=== PATIENT | female | born 1965 ===

== ENCOUNTER 2020-01-10 07:59 | Outpatient (REF) | payer OTHER, SELFPAY ==
[2020-01-10 09:45] LABS: Alanine Aminotransferase 18 U/L (0-31); Albumin Level 4.3 g/dL (3.5-5.0); Alkaline Phosphatase 82 U/L (39-117); Anion Gap 13 (12-20); Aspartate Amino Transferase 16 U/L (5-31); Bilirubin Total 0.6 mg/dL (0.0-1.0); Blood Urea Nitrogen 16 mg/dL (9-16); Calcium 8.4 mg/dL (8.4-10.2); Carbon Dioxide 34 mmol/L (22-29); Chloride 97 mmol/L (96-108); Cholesterol 168 mg/dL; Estimated Glomerular Filt Rate > 60; Glucose Random 103 mg/dL (60-115); HDL Cholesterol 45 mg/dL; LDL Cholesterol Calculated 99 mg/dl; Potassium 2.8 mmol/l (3.3-5.1); Sodium 141 mmol/L (135-145); Total Protein 7.1 g/dL (6.5-8.0); Triglycerides 124 mg/dL
== END 2020-01-10 08:00 | disposition home or self-care (01) ==
LOC: HO.LAB 07:59
PROVIDERS: Visit Provider Internal Medicine
DX: Z00.01 Encounter for general adult medical examination with abnormal findings (principal); E87.6 Hypokalemia; I10 Essential (primary) hypertension; J01.80 Other acute sinusitis
CPT/HCPCS: 80053; 80061

== ENCOUNTER 2020-02-19 08:51 | Outpatient (REF) | payer OTHER, SELFPAY ==
[2020-02-19 10:25] LABS: Alanine Aminotransferase 15 U/L (0-31); Albumin Level 4.4 g/dL (3.5-5.0); Alkaline Phosphatase 71 U/L (39-117); Anion Gap 14 (12-20); Aspartate Amino Transferase 15 U/L (5-31); Bilirubin Total 0.6 mg/dL (0.0-1.0); Blood Urea Nitrogen 21 mg/dL (9-16); Calcium 9.3 mg/dL (8.4-10.2); Carbon Dioxide 35 mmol/L (22-29); Chloride 97 mmol/L (96-108); Estimated Glomerular Filt Rate > 60; Glucose Random 94 mg/dL (60-115); Potassium 3.1 mmol/l (3.3-5.1); Sodium 143 mmol/L (135-145); Total Protein 7.4 g/dL (6.5-8.0)
== END 2020-02-19 08:52 | disposition home or self-care (01) ==
LOC: HO.LAB 08:51
PROVIDERS: Visit Provider Internal Medicine
DX: E87.3 Alkalosis (principal); E87.6 Hypokalemia; I10 Essential (primary) hypertension; R05 Cough
CPT/HCPCS: 80053

== ENCOUNTER 2020-02-19 09:28 | Outpatient (REF) | payer OTHER, SELFPAY | END 2020-02-19 09:29 | disposition home or self-care (01) | LOC: HO.LAB 09:28 | PROVIDERS: Visit Provider Internal Medicine | DX: Z20.828 Contact with and (suspected) exposure to other viral communicable diseases (principal) | CPT/HCPCS: C9803; U0003 ==

== ENCOUNTER 2020-03-28 08:17 | Outpatient (REF) | payer OTHER, SELFPAY ==
--- NOTE | 2020-03-28 08:34 | XR_ITS ---
EXAMINATION: XR CHEST CLINICAL INFORMATION: Bronchitis. Pneumonia. COMPARISON: Previous chest x-ray August 2013 TECHNIQUE: 2 views of the chest were obtained. FINDINGS: The cardiac and mediastinal contours are stable. The lungs are clear. There is no pleural effusion or pneumothorax. Bony structures are unremarkable. XR/XR chest 2V IMPRESSION: Unremarkable examination.
[2020-03-28 09:25] LABS: Alanine Aminotransferase 16 U/L (0-31); Albumin Level 4.2 g/dL (3.5-5.0); Alkaline Phosphatase 77 U/L (39-117); Anion Gap 11 (12-20); Aspartate Amino Transferase 14 U/L (5-31); Bilirubin Total 0.6 mg/dL (0.0-1.0); Blood Urea Nitrogen 13 mg/dL (9-16); Calcium 8.9 mg/dL (8.4-10.2); Carbon Dioxide 29 mmol/L (22-29); Chloride 105 mmol/L (96-108); Estimated Glomerular Filt Rate > 60; Glucose Fasting 94 mg/dL (60-99); Potassium 3.6 mmol/l (3.3-5.1); Sodium 141 mmol/L (135-145); Total Protein 6.9 g/dL (6.5-8.0)
== END 2020-03-28 08:18 | disposition home or self-care (01) ==
LOC: HO.LAB 08:17
PROVIDERS: PCP Internal Medicine; Visit Provider Internal Medicine
DX: E87.6 Hypokalemia (principal); I10 Essential (primary) hypertension; J20.9 Acute bronchitis, unspecified; R05 Cough; J18.9 Pneumonia, unspecified organism
CPT/HCPCS: 36415; 71046; 80053

== ENCOUNTER 2020-03-31 11:29 | Outpatient (REF) | payer OTHER, SELFPAY | END 2020-03-31 11:30 | disposition home or self-care (01) | LOC: HO.LAB 11:29 | PROVIDERS: Visit Provider Internal Medicine | DX: Z20.822 Contact with and (suspected) exposure to COVID-19 (principal) | CPT/HCPCS: 36415; C9803; U0003 ==

== ENCOUNTER → 2020-05-07 10:20 | Outpatient (BNVA) | payer OTHER, SELFPAY | PROVIDERS: Visit Provider Student in an Organized Health Care Education/Training Program | DX: M25.532 Pain in left wrist (principal); M17.12 Unilateral primary osteoarthritis, left knee; Z79.899 Other long term (current) drug therapy | CPT/HCPCS: 99212 ==

== ENCOUNTER 2020-05-12 10:36 | Outpatient (REF) | payer OTHER, SELFPAY ==
--- NOTE | ~2020-05-12 | XR_ITS ---
EXAMINATION: XR WRIST, LEFT CLINICAL INFORMATION: Pain left wrist. COMPARISON: None TECHNIQUE: PA, lateral, and oblique views of the left wrist. FINDINGS: The bones and soft tissues are normal. No fracture. Alignment is anatomic with normal joint spaces. No erosions or abnormal soft tissue calcifications. XR/XR wrist LT 2V IMPRESSION: Unremarkable left wrist exam.
--- NOTE | ~2020-05-12 | MM_ITS ---
EXAMINATION: MM SCREENING DIGITAL BREAST TOMOSYNTHESIS, BILATERAL CLINICAL INFORMATION: Screening. Asymptomatic. The lifetime risk of breast cancer based on the Tyrer-Cuzick Model is 5%. COMPARISON: Mammography: 02/27/2019, 01/10/2018, 11/23/2016 TECHNIQUE: Digital breast tomosynthesis is performed in both the craniocaudal and mediolateral oblique views along with computer-aided detection (CAD). Synthesized 2D images are generated from the tomosynthesis. Additional left MLO view is provided. FINDINGS: There are scattered areas of fibroglandular density (ACR BI-RADS breast composition Category b). There are no significant masses, abnormal calcifications, or other abnormalities. The skin contours are smooth. No significant changes from prior exams. MM/MM tomosynthesis screening BI IMPRESSION: No mammographic evidence of malignancy. ASSESSMENT: BI-RADS 1: Negative RECOMMENDATION: Routine annual mammography screening. This patient's information was entered into a reminder system with a target due date for their next mammogram.
== END 2020-05-12 10:37 | disposition home or self-care (01) ==
LOC: HO.MAMMO 10:36
PROVIDERS: Absent Provider Student in an Organized Health Care Education/Training Program; PCP Internal Medicine; Visit Provider Internal Medicine
DX: Z12.31 Encounter for screening mammogram for malignant neoplasm of breast (principal); M25.532 Pain in left wrist
CPT/HCPCS: 73100; 77063; 77067

== ENCOUNTER 2020-05-26 13:23 | Outpatient (REF) | payer OTHER, SELFPAY | END 2020-05-26 13:24 | disposition home or self-care (01) | LOC: HO.LAB 13:23 | PROVIDERS: Visit Provider Internal Medicine | DX: Z20.822 Contact with and (suspected) exposure to COVID-19 (principal) | CPT/HCPCS: 36415; C9803; U0003; U0005 ==

== ENCOUNTER 2020-06-06 13:02 | Outpatient (REF) | payer OTHER, SELFPAY ==
[2020-06-07 07:45] LABS: SARS COV2 PCR INHOUSE POSITIVE (Negative)
== END 2020-06-06 13:03 | disposition home or self-care (01) ==
LOC: HO.LAB 13:02
PROVIDERS: Visit Provider Internal Medicine
DX: Z20.822 Contact with and (suspected) exposure to COVID-19 (principal)
CPT/HCPCS: C9803; U0003

== ENCOUNTER 2020-06-17 10:40 | Outpatient (REF) | payer OTHER, SELFPAY ==
[2020-06-17 12:15] LABS: COVID-19 Test Negative (Negative)
== END 2020-06-17 10:41 | disposition home or self-care (01) ==
LOC: HO.LAB 10:40
PROVIDERS: Visit Provider Internal Medicine
DX: Z20.822 Contact with and (suspected) exposure to COVID-19 (principal)
CPT/HCPCS: 36415; 87635; C9803

== ENCOUNTER → 2020-11-12 13:19 | Outpatient (BNVA) | payer OTHER, SELFPAY | PROVIDERS: PCP Internal Medicine | DX: N28.1 Cyst of kidney, acquired (principal) | CPT/HCPCS: 99202 ==

== ENCOUNTER 2020-12-22 14:04 | Outpatient (REF) | payer OTHER, SELFPAY ==
[2020-12-22 14:26] LABS: MANUAL DIFF FLAG NO
[2020-12-22 14:31] LABS: Basophils Percent Auto 0.3 % (0-2); Eosinophils Absolute Auto 0.2 X10*3/uL (0.0-0.4); Eosinophils Percent Auto 2.8 % (0-4); Hemoglobin 13.3 g/dl (12.0-16.0); Imm Gran Abs Auto 0.01 X10*3/uL (0.00-0.03); Imm Gran Pct Auto 0.1 % (0.0-0.4); Lymphocytes Absolute Auto 2.6 X10*3/uL (1.2-4.9); Lymphocytes Percent Auto 37.5 % (20-40); Mean Corpuscular HGB Conc 33.3 g/dl (31.0-35.0); Mean Corpuscular Hemoglobin 31.1 pg (27.0-33.0); Mean Corpuscular Volume 93.5 fL (80-98); Mean Platelet Volume 10.2 fL (9.4-12.3); Monocytes Absolute Auto 0.5 X10*3/uL (0.1-1.2); Monocytes Percent Auto 6.9 % (2-11); Neutrophils Absolute Auto 3.6 X10*3/uL (2.0-8.3); Neutrophils Percent Auto 52.4 % (45-73); Platelet Count 248 X10*3/uL (160-400); Red Blood Count 4.28 X10*6/uL (4.20-5.50); Red Cell Distribution Width 12.3 % (11.0-16.0); White Blood Count 6.9 X10*3/uL (4.8-10.8)
[2020-12-22 14:47] LABS: Alanine Aminotransferase 15 U/L (0-31); Albumin Level 4.4 g/dL (3.5-5.0); Alkaline Phosphatase 108 U/L (39-117); Anion Gap 14 (12-20); Aspartate Amino Transferase 15 U/L (5-31); Bilirubin Total 0.4 mg/dL (0.0-1.0); Blood Urea Nitrogen 12 mg/dL (9-16); Calcium 8.8 mg/dL (8.4-10.2); Carbon Dioxide 32 mmol/L (22-29); Chloride 103 mmol/L (96-108); Cholesterol 168 mg/dL; Estimated Glomerular Filt Rate > 60; Glucose Random 71 mg/dL (60-115); HDL Cholesterol 44 mg/dL; LDL Cholesterol Calculated 99 mg/dl; Potassium 3.7 mmol/L (3.3-5.1); Sodium 145 mmol/L (135-145); Total Protein 7.4 g/dL (6.5-8.0); Triglycerides 128 mg/dL
== END 2020-12-22 14:05 | disposition home or self-care (01) ==
LOC: HO.LAB 14:04
PROVIDERS: Visit Provider Internal Medicine
DX: E78.00 Pure hypercholesterolemia, unspecified (principal); I10 Essential (primary) hypertension; J45.902 Unspecified asthma with status asthmaticus; R35.0 Frequency of micturition
CPT/HCPCS: 36415; 80053; 80061; 85025

== ENCOUNTER → 2020-12-29 11:03 | Outpatient (BNVA) | payer OTHER, SELFPAY | PROVIDERS: PCP Internal Medicine; Visit Provider Nurse Practitioner Family | DX: M25.512 Pain in left shoulder (principal); M25.521 Pain in right elbow; M17.12 Unilateral primary osteoarthritis, left knee; Z79.899 Other long term (current) drug therapy | CPT/HCPCS: 99212 ==

== ENCOUNTER 2020-12-31 11:02 | Outpatient (REF) | payer OTHER, SELFPAY ==
--- NOTE | ~2020-12-31 | XR_ITS ---
EXAMINATION: XR SHOULDER, LEFT CLINICAL INFORMATION: Pain in left shoulder COMPARISON: None TECHNIQUE: Four views of the left shoulder. FINDINGS: No fracture or dislocation. The glenohumeral joint is well aligned. The joint space is maintained. The acromioclavicular joint is intact. The visualized lung is clear. The visualized ribs are intact. XR/XR shoulder LT min 2V IMPRESSION: Normal left shoulder.
--- NOTE | ~2020-12-31 | XR_ITS ---
EXAMINATION: XR ELBOW, RIGHT CLINICAL INFORMATION: Pain in right elbow COMPARISON: None TECHNIQUE: AP, lateral, and oblique views of the right elbow. FINDINGS: No fracture or dislocation. Alignment is maintained. Joint spaces are maintained. Enthesophyte formation of the olecranon. No joint effusion. The soft tissues are unremarkable. XR/XR elbow RT 2V IMPRESSION: Olecranon enthesophyte. Otherwise unremarkable appearance of the elbow.
== END 2020-12-31 11:03 | disposition home or self-care (01) ==
LOC: HO.XRAY 11:02
PROVIDERS: PCP Internal Medicine; Visit Provider Nurse Practitioner Family
DX: M25.512 Pain in left shoulder (principal); M25.521 Pain in right elbow
CPT/HCPCS: 73030; 73070

== ENCOUNTER 2021-02-20 08:25 | Outpatient (REF) | payer OTHER, SELFPAY ==
[2021-02-20 10:16] LABS: COVID-19 Test Negative (Negative)
== END 2021-02-20 08:26 | disposition home or self-care (01) ==
LOC: HO.LAB 08:25
PROVIDERS: Visit Provider Internal Medicine
DX: Z20.822 Contact with and (suspected) exposure to COVID-19 (principal)
CPT/HCPCS: 36415; 87635; C9803

== ENCOUNTER 2021-03-12 11:24 | Outpatient (REF) | payer OTHER, SELFPAY ==
[2021-03-12 12:22] LABS: COVID-19 Test Negative (Negative); IDNOW Serial# 16C4AD1C
== END 2021-03-12 11:25 | disposition home or self-care (01) ==
LOC: HO.LAB 11:24
PROVIDERS: Visit Provider Internal Medicine
DX: Z20.822 Contact with and (suspected) exposure to COVID-19 (principal)
CPT/HCPCS: 87635; C9803

== ENCOUNTER 2021-04-01 10:16 | Outpatient (REF) | payer OTHER, SELFPAY ==
--- NOTE | ~2021-04-01 | US_ITS ---
EXAMINATION: US RETROPERITONEAL LIMITED (RENAL ONLY) CLINICAL INFORMATION: Cyst of kidney, acquired. COMPARISON: Renal ultrasound 04/05/2018 and 11/23/2017. CT abdomen and pelvis 08/11/2014. TECHNIQUE: Real-time imaging of the kidneys. FINDINGS: RIGHT KIDNEY: 10.0 x 4.9 x 5.1 cm (SAG x AP x TRV). The kidney is normal in size, contour, and echogenicity. Renal cortical thickness is normal. No focal parenchymal lesions or hydronephrosis. There are echogenic stone midpole measuring 0.3 and 0.2 cm. There is mild pelvic fullness. LEFT KIDNEY: 11.8 x 4.7 x 5.0 cm (SAG x AP x TRV). The kidney is normal in size, contour, and echogenicity. Renal cortical thickness is normal. No focal parenchymal lesions or hydronephrosis. There is an echogenic stone in midpole measuring 0.2 cm. No cyst is visualized at this time. There is mild pelvic fullness. US/US renal BI IMPRESSION: Bilateral non obstructive echogenic renal calculi without caliectasis or hydronephrosis. Previously seen complex cyst left kidney upper pole is not seen at this time. There is mild bilateral pelvic fullness.
== END 2021-04-01 10:17 | disposition home or self-care (01) ==
LOC: HO.US 10:16
DX: N28.1 Cyst of kidney, acquired (principal)
CPT/HCPCS: 76775

== ENCOUNTER → 2021-05-12 13:17 | Outpatient (BNVA) | payer OTHER, SELFPAY | PROVIDERS: PCP Internal Medicine | DX: N28.1 Cyst of kidney, acquired (principal); N20.0 Calculus of kidney | CPT/HCPCS: 99212 ==

== ENCOUNTER 2021-06-02 11:17 | Outpatient (REF) | payer OTHER, SELFPAY ==
--- NOTE | ~2021-06-02 | MM_ITS ---
EXAMINATION: MM SCREENING DIGITAL BREAST TOMOSYNTHESIS, BILATERAL CLINICAL INFORMATION: Screening. Asymptomatic. The lifetime risk of breast cancer based on the Tyrer-Cuzick Model is 5%. COMPARISON: Mammography: 05/12/2020, 02/27/2019, 01/10/2018, 11/23/2016 TECHNIQUE: Digital breast tomosynthesis is performed in both the craniocaudal and mediolateral oblique views along with computer-aided detection (CAD). Synthesized 2D images are generated from the tomosynthesis. Additional left MLO view is provided. FINDINGS: There are scattered areas of fibroglandular density (ACR BI-RADS breast composition Category b). There are no significant masses, abnormal calcifications, or other abnormalities. Parenchymal pattern is similar to prior studies. Axillary nodes are stable. Skin contours are smooth. No significant changes. MM/MM tomosynthesis screening BI IMPRESSION: No mammographic evidence of malignancy. ASSESSMENT: BI-RADS 2: Benign RECOMMENDATION: Routine annual mammography screening. This patient's information was entered into a reminder system with a target due date for their next mammogram.
== END 2021-06-02 11:18 | disposition home or self-care (01) ==
LOC: HO.MAMMO 11:17
PROVIDERS: PCP Internal Medicine; Visit Provider Internal Medicine
DX: Z12.31 Encounter for screening mammogram for malignant neoplasm of breast (principal)
CPT/HCPCS: 77063; 77067

== ENCOUNTER 2021-06-22 10:08 | Outpatient (REF) | payer OTHER, SELFPAY ==
[2021-06-22 11:23] LABS: Alanine Aminotransferase 24 U/L (0-31); Albumin Level 4.3 g/dL (3.5-5.0); Alkaline Phosphatase 105 U/L (39-117); Anion Gap 12 (12-20); Aspartate Amino Transferase 19 U/L (5-31); Bilirubin Total 0.6 mg/dL (0.0-1.0); Blood Urea Nitrogen 14 mg/dL (9-16); Calcium 9.4 mg/dL (8.4-10.2); Carbon Dioxide 31 mmol/L (22-29); Chloride 103 mmol/L (96-108); Estimated Glomerular Filt Rate > 60; Glucose Random 101 mg/dL (60-115); Potassium 3.6 mmol/L (3.3-5.1); Sodium 142 mmol/L (135-145); Total Protein 7.3 g/dL (6.5-8.0)
== END 2021-06-22 10:09 | disposition home or self-care (01) ==
LOC: HO.LAB 10:08
PROVIDERS: PCP Internal Medicine; Visit Provider Internal Medicine
DX: Z00.00 Encounter for general adult medical examination without abnormal findings (principal); E78.00 Pure hypercholesterolemia, unspecified; I10 Essential (primary) hypertension
CPT/HCPCS: 36415; 80053

== ENCOUNTER → 2021-06-29 10:54 | Outpatient (BNVA) | payer OTHER, SELFPAY | PROVIDERS: PCP Internal Medicine; Visit Provider Nurse Practitioner Family | DX: M17.12 Unilateral primary osteoarthritis, left knee (principal); M25.512 Pain in left shoulder; M25.521 Pain in right elbow | CPT/HCPCS: 99212 ==

== ENCOUNTER 2021-09-21 10:07 | Outpatient (REF) | payer OTHER, SELFPAY ==
[2021-09-21 10:15] LABS: MANUAL DIFF FLAG NO
[2021-09-21 10:44] LABS: Basophils Percent Auto 0.2 % (0-2); Eosinophils Absolute Auto 0.1 X10*3/uL (0.0-0.4); Eosinophils Percent Auto 1.4 % (0-4); Hematocrit 39.7 % (37.0-47.0); Hemoglobin 13.6 g/dl (12.0-16.0); Imm Gran Abs Auto 0.03 X10*3/uL (0.00-0.03); Imm Gran Pct Auto 0.5 % (0.0-0.4); Lymphocytes Absolute Auto 2.3 X10*3/uL (1.2-4.9); Lymphocytes Percent Auto 36.5 % (20-40); Mean Corpuscular HGB Conc 34.3 g/dl (31.0-35.0); Mean Corpuscular Hemoglobin 31.6 pg (27.0-33.0); Mean Corpuscular Volume 92.3 fL (80.0-98.0); Monocytes Absolute Auto 0.4 X10*3/uL (0.1-1.2); Monocytes Percent Auto 6.7 % (2-11); Neutrophils Absolute Auto 3.5 x10*3/uL (2.0-8.3); Neutrophils Percent Auto 54.7 % (45-73); Platelet Count 205 X10*3/uL (160-400); Red Cell Distribution Width 12.7 % (11.0-16.0); White Blood Count 6.3 X10*3/uL (4.8-10.8)
[2021-09-21 12:09] LABS: TSH reflex Free T4 1.58 uIU/mL (0.32-4.0)
== END 2021-09-21 10:08 | disposition home or self-care (01) ==
LOC: HO.LAB 10:07
PROVIDERS: PCP Internal Medicine; Visit Provider Internal Medicine
DX: I10 Essential (primary) hypertension (principal); I47.1 Supraventricular tachycardia; J30.89 Other allergic rhinitis
CPT/HCPCS: 36415; 84443; 85025

== ENCOUNTER 2021-12-22 08:36 | Outpatient (REF) | payer OTHER, SELFPAY ==
[2021-12-22 09:57] LABS: Alanine Aminotransferase 13 U/L (0-31); Albumin Level 4.1 g/dL (3.5-5.0); Alkaline Phosphatase 96 U/L (39-117); Anion Gap 15 (12-20); Aspartate Amino Transferase 14 U/L (5-31); Bilirubin Total 0.6 mg/dL (0.0-1.0); Blood Urea Nitrogen 13 mg/dL (9-16); Calcium 8.8 mg/dL (8.4-10.2); Carbon Dioxide 29 mmol/L (22-29); Chloride 104 mmol/L (96-108); Cholesterol 166 mg/dL; Estimated Glomerular Filt Rate > 60; Glucose Random 98 mg/dL (60-115); HDL Cholesterol 44 mg/dL; LDL Cholesterol Calculated 99 mg/dl; Potassium 3.8 mmol/L (3.3-5.1); Sodium 144 mmol/L (135-145); Triglycerides 118 mg/dL
== END 2021-12-22 08:37 | disposition home or self-care (01) ==
LOC: HO.LAB 08:36
PROVIDERS: PCP Internal Medicine; Visit Provider Internal Medicine
DX: E78.00 Pure hypercholesterolemia, unspecified (principal); I10 Essential (primary) hypertension; J45.909 Unspecified asthma, uncomplicated; Q61.8 Other cystic kidney diseases
CPT/HCPCS: 36415; 80053; 80061

== ENCOUNTER → 2022-04-05 10:10 | Outpatient (BNVA) | payer OTHER, SELFPAY | PROVIDERS: PCP Internal Medicine; Visit Provider Nurse Practitioner Family | DX: M17.12 Unilateral primary osteoarthritis, left knee (principal); M25.561 Pain in right knee | CPT/HCPCS: 99212 ==

== ENCOUNTER 2022-04-14 10:23 | Outpatient (REF) | payer OTHER, SELFPAY | END 2022-04-14 10:24 | disposition home or self-care (01) | LOC: HO.LAB 10:23 | PROVIDERS: Absent Provider Internal Medicine; PCP Internal Medicine; Visit Provider Nurse Practitioner Family | DX: N39.0 Urinary tract infection, site not specified (principal) | CPT/HCPCS: 87086 ==

== ENCOUNTER 2022-04-19 11:08 | Outpatient (REF) | payer OTHER, SELFPAY ==
--- NOTE | ~2022-04-19 | XR_ITS ---
EXAMINATION: XR KNEE, RIGHT CLINICAL INFORMATION: Pain in the right knee COMPARISON: None TECHNIQUE: Four views of the right knee. XR/XR knee RT 3V FINDINGS AND IMPRESSION: Bones have normal alignment and joint spaces are normal. No joint effusion. No arthritic deformity. There is an enthesophyte of the anterior tibial tubercle at site of patellar tendon attachment. No specific source of pain is identified.
== END 2022-04-19 11:09 | disposition home or self-care (01) ==
LOC: HO.XRAY 11:08
PROVIDERS: PCP Internal Medicine; Visit Provider Nurse Practitioner Family
DX: M25.561 Pain in right knee (principal)
CPT/HCPCS: 73562

== ENCOUNTER 2022-05-03 09:06 | Outpatient (REF) | payer OTHER, SELFPAY ==
--- NOTE | ~2022-05-03 | US_ITS ---
EXAMINATION: US RETROPERITONEAL LIMITED (RENAL ONLY) CLINICAL INFORMATION: Calculus of kidney. COMPARISON: Ultrasound retroperitoneal limited (renal only) 04/01/2021. Renal artery Doppler ultrasound 04/05/2018. CT abdomen and pelvis without contrast 08/11/2014. TECHNIQUE: Real-time imaging of the kidneys. FINDINGS: RIGHT KIDNEY: 10.1 x 4.6 x 5.7 cm (SAG x AP x TRV). The kidney is normal in size, contour, and echogenicity. Renal cortical thickness is normal. No focal parenchymal lesions or hydronephrosis. There are echogenic stones in the midpole measuring 0.2 x 0.3 cm and 0.3 x 0.3 cm. LEFT KIDNEY: 11.2 x 5.0 x 4.8 cm (SAG x AP x TRV). The kidney is normal in size, contour, and echogenicity. Renal cortical thickness is normal. No focal parenchymal lesions or hydronephrosis. There is an echogenic foci in the lower pole measuring 0.3 x 0.3 cm. US/US renal BI IMPRESSION: Bilateral nonobstructive echogenic renal calculi. No caliectasis or hydronephrosis. No change from previous ultrasound exam 04/01/2021.
== END 2022-05-03 09:07 | disposition home or self-care (01) ==
LOC: HO.US 09:06
PROVIDERS: PCP Internal Medicine
DX: N20.0 Calculus of kidney (principal); N28.1 Cyst of kidney, acquired
CPT/HCPCS: 76775

== ENCOUNTER → 2022-05-18 13:36 | Outpatient (BNVA) | payer OTHER, SELFPAY | PROVIDERS: PCP Internal Medicine; Visit Provider Nurse Practitioner Family | DX: N20.0 Calculus of kidney (principal) | CPT/HCPCS: Q3014 ==

== ENCOUNTER 2022-06-08 09:52 | Outpatient (REF) | payer OTHER, SELFPAY ==
--- NOTE | ~2022-06-08 | MM_ITS ---
EXAMINATION: MM SCREENING DIGITAL BREAST TOMOSYNTHESIS, BILATERAL CLINICAL INFORMATION: Screening. Asymptomatic. The lifetime risk of breast cancer based on the Tyrer-Cuzick Model is 5%. COMPARISON: Mammography: 06/02/2021, 05/12/2020, 02/27/2019 TECHNIQUE: Digital breast tomosynthesis is performed in both the craniocaudal and mediolateral oblique views along with computer-aided detection (CAD). Synthesized 2D images are generated from the tomosynthesis. FINDINGS: There are scattered areas of fibroglandular density (ACR BI-RADS breast composition Category b). There are no significant masses, abnormal calcifications, or other abnormalities. Parenchymal pattern is similar to prior studies. There is no developing density or architectural abnormality. The axilla and skin contours are unremarkable. No significant changes. MM/MM tomosynthesis screening BI IMPRESSION: No mammographic evidence of malignancy. ASSESSMENT: BI-RADS 1: Negative RECOMMENDATION: Routine annual mammography screening. This patient's information was entered into a reminder system with a target due date for their next mammogram.
== END 2022-06-08 09:53 | disposition home or self-care (01) ==
LOC: HO.MAMMO 09:52
PROVIDERS: PCP Internal Medicine; Visit Provider Internal Medicine
DX: Z12.31 Encounter for screening mammogram for malignant neoplasm of breast (principal)
CPT/HCPCS: 77063; 77067

== ENCOUNTER 2022-06-14 10:43 | Outpatient (REF) | payer OTHER, SELFPAY ==
[2022-06-14 12:16] LABS: Alanine Aminotransferase 23 U/L (0-31); Albumin Level 4.3 g/dL (3.5-5.0); Alkaline Phosphatase 92 U/L (39-117); Anion Gap 13 (12-20); Aspartate Amino Transferase 20 U/L (5-31); Bilirubin Total 0.5 mg/dL (0.0-1.0); Blood Urea Nitrogen 15 mg/dL (9-16); Calcium 9.3 mg/dL (8.4-10.2); Carbon Dioxide 31 mmol/L (22-29); Chloride 105 mmol/L (96-108); Estimated Glomerular Filt Rate > 60; Glucose Random 109 mg/dL (60-115); Potassium 3.6 mmol/L (3.3-5.1); Sodium 145 mmol/L (135-145); Total Protein 7.1 g/dL (6.5-8.0)
== END 2022-06-14 10:44 | disposition home or self-care (01) ==
LOC: HO.LAB 10:43
PROVIDERS: PCP Internal Medicine; Visit Provider Internal Medicine
DX: I10 Essential (primary) hypertension (principal); R10.30 Lower abdominal pain, unspecified
CPT/HCPCS: 36415; 80053

== ENCOUNTER 2022-06-16 10:41 | Outpatient (REF) | payer OTHER, SELFPAY ==
--- NOTE | ~2022-06-16 | CT_ITS ---
EXAMINATION: CT ABDOMEN AND PELVIS WITH CONTRAST CLINICAL INFORMATION: Lower abdominal pain COMPARISON: Previous CT of the abdomen and pelvis August 2014 and renal ultrasound most recent April 2022 TECHNIQUE: Multidetector volumetric images were obtained from the superior aspect of the liver through the pubic symphysis following administration 85 mL of Omnipaque 350 intravenous contrast. Sagittal and coronal reformatted images were obtained on the technologist's workstation. Oral contrast: Yes This CT examination was performed using dose optimization techniques as appropriate, variously including the following: *Automated exposure control *Adjustment of mA and/or kV according to patient size (this includes techniques or standardized protocols for targeted exams where dose is matched to indication/reason for exam; i.e. extremities or head) *Use of iterative reconstruction technique DLP: 380 mGy-cm FINDINGS: LUNG BASES: The visualized lung bases are unremarkable. LIVER, GALLBLADDER, AND BILIARY TREE: The liver is low in attenuation suggestive of fatty infiltration. No focal hepatic lesion or biliary ductal dilatation is present. The gallbladder is unremarkable with no evidence of radiopaque gallstones, gallbladder wall thickening, or obvious pericholecystic inflammatory changes. PANCREAS: Unremarkable. SPLEEN: Unremarkable. ADRENAL GLANDS: Unremarkable. KIDNEYS AND URETERS: The kidneys are normal in size, shape, and attenuation. No hydronephrosis, hydroureter, or calculi seen. No perinephric stranding. Small cyst in the upper pole of the left kidney. No imaging follow-up recommended. BLADDER: Unremarkable. GASTROINTESTINAL TRACT: The small and large bowel are unremarkable. The appendix is unremarkable. ABDOMINAL WALL: No significant hernia is appreciated. LYMPH NODES: Normal. VASCULAR: Unremarkable. PELVIC VISCERA: Unremarkable. OSSEOUS STRUCTURES: Unremarkable. CT/CT abdomen pelvis w IV con IMPRESSION: No acute findings. Fatty liver. Fleischner guidelines were followed.
[2022-06-16] MEDS: Barium Sulfate Oral (Berry) 450 ML ORAL.SUSP 900 ML PO (14:22)
[2022-06-16] MEDS: iohexoL 350 MG/ML 100 ML INFUS..BTL 85 ML IV (14:22)
== END 2022-06-16 10:42 | disposition home or self-care (01) ==
LOC: HO.CT 10:41
PROVIDERS: PCP Internal Medicine; Visit Provider Internal Medicine
DX: R10.32 Left lower quadrant pain (principal)
CPT/HCPCS: 74177; Q9967

== ENCOUNTER → 2022-07-02 09:52 | Outpatient (BNVA) | payer OTHER, SELFPAY | PROVIDERS: PCP Internal Medicine; Visit Provider Nurse Practitioner Family | DX: M25.561 Pain in right knee (principal); M17.12 Unilateral primary osteoarthritis, left knee | CPT/HCPCS: 99212 ==

== ENCOUNTER → 2022-07-14 11:10 | Outpatient (BNVA) | payer OTHER, SELFPAY | PROVIDERS: PCP Internal Medicine; Referring Provider Internal Medicine; Visit Provider Surgery | DX: K64.8 Other hemorrhoids (principal) | CPT/HCPCS: 46600; 99202 ==

== ENCOUNTER 2022-07-19 10:57 | Outpatient (REF) | payer OTHER, SELFPAY ==
[2022-07-20 09:08] LABS: Lyme Abs Screen <0.90 index
== END 2022-07-19 10:58 | disposition home or self-care (01) ==
LOC: HO.LAB 10:57
PROVIDERS: PCP Internal Medicine; Visit Provider Nurse Practitioner Family
DX: M25.461 Effusion, right knee (principal); R10.2 Pelvic and perineal pain
CPT/HCPCS: 36415; 86617; 86618; 87086

== ENCOUNTER 2022-07-20 14:24 | Outpatient (REF) | payer OTHER, SELFPAY ==
[2022-07-21 09:10] LABS: CT PCR NOT DETECTED (Not Detect.); NG PCR NOT DETECTED (Not Detect.)
== END 2022-07-20 14:25 | disposition home or self-care (01) ==
LOC: HO.LNP 14:24
PROVIDERS: PCP Internal Medicine; Visit Provider Obstetrics & Gynecology
DX: R10.2 Pelvic and perineal pain (principal); R31.29 Other microscopic hematuria
CPT/HCPCS: 0353U; 87086; 99202

== ENCOUNTER 2022-07-23 13:56 | Outpatient (REF) | payer OTHER, SELFPAY ==
--- NOTE | ~2022-07-23 | US_ITS ---
EXAMINATION: US PELVIS COMPLETE CLINICAL INFORMATION: Pelvic pain; postmenopausal patient. COMPARISON: Pelvic ultrasound dated 03/03/2011. TECHNIQUE: Transabdominal and transvaginal imaging were performed. FINDINGS: The uterus is of normal size and echogenicity measuring 9.3 x 2.3 x 3.7 cm. A regular homogeneous endometrium is identified measuring 0.7 cm. FIBROIDS: There is 1 fibroid seen. 1. Location: Anterior body, myometrial. Size: 0.9 x 0.4 x 0.9 cm. Fibroid characteristics: Hyperechoic. Both ovaries are nonvisualized. There is no pelvic free fluid. No adnexal masses seen. US/US pelvic and transvaginal IMPRESSION: 1. There is abnormal postmenopausal endometrial stripe thickening to 7 mm. Gynecology evaluation and management are recommended, with consideration for tissue sampling. 2. A small uterine fibroid is noted. 3. The ovaries are nonvisualized.
== END 2022-07-23 13:57 | disposition home or self-care (01) ==
LOC: HO.US 13:56
PROVIDERS: PCP Internal Medicine; Visit Provider Obstetrics & Gynecology
DX: R10.2 Pelvic and perineal pain (principal)
CPT/HCPCS: 76830; 76856

== ENCOUNTER → 2022-08-12 10:29 | Outpatient (BNVA) | payer OTHER, SELFPAY | PROVIDERS: PCP Internal Medicine; Visit Provider Obstetrics & Gynecology | DX: R10.2 Pelvic and perineal pain (principal); R31.29 Other microscopic hematuria; D25.9 Leiomyoma of uterus, unspecified | CPT/HCPCS: 99212 ==

== ENCOUNTER 2022-09-27 08:37 | Outpatient (REF) | payer OTHER, SELFPAY ==
--- NOTE | ~2022-09-27 | US_ITS ---
EXAMINATION: US RETROPERITONEAL LIMITED (RENAL ONLY) CLINICAL INFORMATION: Hypertension. COMPARISON: Previous CT of the abdomen and pelvis 06/2022 and renal ultrasound, most recent 04/2022. TECHNIQUE: Doppler color and grayscale evaluation of the kidneys was performed. Doppler color and grayscale evaluation of the renal arteries including waveform spectral analysis was performed. FINDINGS: RIGHT KIDNEY: 10.6 x 4.7 x 5.2 cm (SAG x AP x TRV). The kidney is normal in size, contour, and echogenicity. Renal cortical thickness is normal. No calculi or focal parenchymal lesions. No hydronephrosis. LEFT KIDNEY: 10.9 x 5.7 x 4.7 cm (SAG x AP x TRV). The kidney is normal in size, contour, and echogenicity. Renal cortical thickness is normal. Small echogenic focus in the lower pole measuring 2 mm questionable for a small stone. No focal parenchymal lesions. No hydronephrosis. Aortic peak systolic velocity is 91 cm/s. The right renal artery is patent. Right renal artery peak systolic velocities measure 84, 179 and 34 cm/s with borderline elevation of the right mid renal artery. Right renal artery to aorta ratio is normal measuring 1.8. Resistive indices in the segmental renal arteries in the right kidney are normal measuring 0.7. The right renal vein is patent. Left renal artery peak systolic velocities measure 87, 168 and 133 cm/s proximally, in the midportion and distally. Left renal artery to aorta ratio is normal measuring 1.7. Resistive indices of the segmental renal arteries in the left kidney are normal measuring 0.7 cm. The left renal vein is patent. US/US renal BI IMPRESSION: Morphologically normal-appearing kidneys. Question small stone in the lower pole of the left kidney. Borderline elevated peak systolic velocity in the right mid renal artery. Renal Doppler exam is otherwise unremarkable.
--- NOTE | ~2022-09-27 | US_ITS ---
EXAMINATION: US RETROPERITONEAL LIMITED (RENAL ONLY) CLINICAL INFORMATION: Hypertension. COMPARISON: Previous CT of the abdomen and pelvis 06/2022 and renal ultrasound, most recent 04/2022. TECHNIQUE: Doppler color and grayscale evaluation of the kidneys was performed. Doppler color and grayscale evaluation of the renal arteries including waveform spectral analysis was performed. FINDINGS: RIGHT KIDNEY: 10.6 x 4.7 x 5.2 cm (SAG x AP x TRV). The kidney is normal in size, contour, and echogenicity. Renal cortical thickness is normal. No calculi or focal parenchymal lesions. No hydronephrosis. LEFT KIDNEY: 10.9 x 5.7 x 4.7 cm (SAG x AP x TRV). The kidney is normal in size, contour, and echogenicity. Renal cortical thickness is normal. Small echogenic focus in the lower pole measuring 2 mm questionable for a small stone. No focal parenchymal lesions. No hydronephrosis. Aortic peak systolic velocity is 91 cm/s. The right renal artery is patent. Right renal artery peak systolic velocities measure 84, 179 and 34 cm/s with borderline elevation of the right mid renal artery. Right renal artery to aorta ratio is normal measuring 1.8. Resistive indices in the segmental renal arteries in the right kidney are normal measuring 0.7. The right renal vein is patent. Left renal artery peak systolic velocities measure 87, 168 and 133 cm/s proximally, in the midportion and distally. Left renal artery to aorta ratio is normal measuring 1.7. Resistive indices of the segmental renal arteries in the left kidney are normal measuring 0.7 cm. The left renal vein is patent. US/US renal doppler IMPRESSION: Morphologically normal-appearing kidneys. Question small stone in the lower pole of the left kidney. Borderline elevated peak systolic velocity in the right mid renal artery. Renal Doppler exam is otherwise unremarkable.
== END 2022-09-27 08:38 | disposition home or self-care (01) ==
LOC: HO.US 08:37
PROVIDERS: PCP Internal Medicine; Visit Provider Internal Medicine Nephrology
DX: N20.0 Calculus of kidney (principal); I10 Essential (primary) hypertension; R80.1 Persistent proteinuria, unspecified
CPT/HCPCS: 76775; 93975

== ENCOUNTER 2022-10-18 10:07 | Outpatient (REF) | payer OTHER, SELFPAY ==
[2022-10-18 11:50] LABS: Anion Gap 12 (12-20); Blood Urea Nitrogen 13 mg/dL (9-16); Calcium 9.3 mg/dL (8.4-10.2); Carbon Dioxide 29 mmol/L (22-29); Chloride 104 mmol/L (96-108); Estimated Glomerular Filt Rate > 60; Potassium 3.1 mmol/L (3.3-5.1); Sodium 142 mmol/L (135-145)
[2022-10-18 11:57] LABS: Appearance Urine Clear; Color Urine Yellow; Glucose Urine UA Negative (Negative); Leukocyte Esterase Urine Negative (Negative); Nitrite Urine Negative (Negative); Specific Gravity - Urine 1.025 (1.005-1.025); UMIC TRIGGER UA YES; Urine Blood Trace (Negative); Urine Ketones Negative (Negative); Urine Protein Trace mg/dL (Neg-Trace)
[2022-10-18 12:12] LABS: RBC Urine 0-2 /HPF (0-2); WBC Urine 0-5 /HPF (0-5)
[2022-10-18 12:13] LABS: Bacteria Urine 1+ (None Seen); Hyaline Casts Urine 0-2 /LPF (0-2)
[2022-10-18 13:02] LABS: Creatinine Urine 269.16 mg/dL; Microalbum/Creatinine Ratio Ur 4.8 ug/mg cr; Protein/Creatinine Ratio, Ur 0.05 (<0.2); Total Protein Urine Random 14 mg/dL (<12)
[2022-10-22 14:58] LABS: Renin 1.64 ng/mL/h (0.25-5.82)
[2022-11-02 13:54] LABS: Catecholamine Frac, Total 593 pg/mL
== END 2022-10-18 10:08 | disposition home or self-care (01) ==
LOC: HO.LAB 10:07
PROVIDERS: PCP Internal Medicine; Visit Provider Internal Medicine Nephrology
DX: I10 Essential (primary) hypertension (principal); R80.1 Persistent proteinuria, unspecified
CPT/HCPCS: 36415; 80051; 81001; 82043; 82088; 82310; 82384; 82565; 84156; 84244; 84520

== ENCOUNTER 2023-01-06 14:17 | Outpatient (AMB) | payer OTHER, SELFPAY ==
--- NOTE | 2023-01-06 14:35 | A.OFFVIS_ITS ---
Intake Vital Signs 01/06/23 14:37 Height 5 ft 4 in Weight 171 lb BMI 29.3 BP 132/86 Blood Pressure Location Lt brachial Position Sitting Pulse 90 Pulse Source Pulse Oximeter Pulse Oximetry (%) 98 Oxygen Delivery Method Room Air Intake Visit Reasons: Asthma Intake Note: pt is here as a new patient for asthma, has a lot of phlegm, clear in color. new inhaler in making her hoarse, rinsing afterwards. 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 Grain Trader Name: Melanie Allergies No Known Allergies [No Known Allergies*] Allergy (Verified 01/06/23 15:06) Medication List - Last Reconciled 01/06/23 by Eric Mota MD acetaminophen ER (Tylenol 8 Hour) 650 mg PO Q8H PRN albuterol sulfate 90 mcg/actuation (Ventolin HFA) 2 puffs inhalation Q4-6H PRN amlodipine 5 mg PO DAILY atorvastatin 10 mg PO DAILY pfpepmbyfb-idbfkwfe-klomefmkno 160-9-4.8 mcg/actuation (Breztri Aerosphere) 2 inhalations inhalation BID doxazosin 4 mg PO BEDTIME hydrocortisone 2.5% topical ibuprofen 600 mg PO TID loratadine 10 mg PO DAILY losartan 25 mg PO DAILY menthol-zinc oxide 0.44-20.6 % (Calmoseptine) 1 appl topical TID PRN metoprolol succinate ER 100 mg PO BID montelukast (Singulair) 10 mg PO DAILY valsartan-hydrochlorothiazide 320-25 mg 1 tab PO DAILY Do you need a note to return to daycare/school/sports/work: No HPI Asthma HPI Details 57 YEARS OLD [employer] [employer] VERY PLEAS ANT FEMALE, HAS BEEN REFERRED FOR PULMONARY EVALUATION AND TREATMENT. SHE DENIES ANY HISTORY OF SMOKING, OR EXPOSURE TO ANY PULMONARY IRRITANTS. SHE DOES HAVE HISTORY OF INTERMITTENT ALLERGY SYMPTOMS. MOST OF HER CURRENT PROBLEM IS ONLY DATING BACK TO A FEW MONTHS AGO. SHE CLAIMS THAT IT IS ALL DUE TO CHANGE IN THE WEATHER. SHE STARTED HAVING NASAL CONGESTION WITH POSTNASAL DISCHARGE AND SOME SHORTNESS OF BREATH. SHE HAS BEEN PRESCRIBED MONTELUKAST FOR ALLERGIC RHINITIS BUT NOT TAKING IT REGULARLY. PATIENT DENIES HAVING ANY PERSISTENT OR RECURRENT WHEEZING, BUT RECENTLY SHE WAS STARTED ON BREZTRI INHALER, EMPIRICALLY. SHE WAS ALSO GIVEN VENTOLIN INHALER TO USE P.R.N.. AFTER USING BREZTRI FOR ABOUT A WEEK SHE IS HAVING INCREASED IRRITATION AND FULLNESS IN THE THROAT . IT HAS NOT HELPED HER BREATHING AT ALL. SHE IS INSISTING , THAT BEFORE 3 MONTHS AGO SHE DID NOT HAVE ANY RESPIRATORY PROBLEM, AND SHE IS CONFIDENT THAT IT IS DUE TO ALLERGY AND CHANGE IN THE WEATHER. PATIENT IS NONSMOKER. [facility] IS REVIEWED. [facility] Medical History (Updated 01/06/23 @ 16:00 by Eric Mota MD) Asthma Allergic rhinitis Hemorrhoids with complication Renal calculi HTN (hypertension) Renal cyst Surgical History Hx of tubal ligation Family History Mother HTN (hypertension) Daughter Multiple sclerosis Social History Household Members: None Housing: Apartment Alcohol intake: never Patient Tobacco Use Status: Never used Tobacco service: No Current occupational status: disabled Review of Systems Const All systems reviewed & are unremarkable except as noted in HPI and below Eyes Reports no additional complaints ENT Reports change in voice, Reports hoarseness, Reports nasal congestion and Reports nasal discharge Card Denies chest pain, Denies irregular heart rhythm and Denies leg edema Resp Reports as per HPI GI Reports no additional complaints Reports no additional complaints Musc Reports no additional complaints Skin/Breast Reports system reviewed and no additional complaints, except as documented Neuro Reports no additional complaints Psych Reports no additional complaints Endo Reports no additional complaints Aller/Immun Reports no additional complaints Physical Exam Vital Signs: Last Vital Signs Pulse 90 01/06/23 14:37 BP 132/86 01/06/23 14:37 Pulse Ox 98 01/06/23 14:37 Oxygen Delivery Method Room Air 01/06/23 14:37 BMI result Body Mass Index 29.3 Const General: comfortable, no acute distress, alert and awake Orientation/consciousness: patient oriented x3 HEENT Head: Yes normal to inspection General nose exam: No nasal polyps present and No nasal discharge present Face and sinus: Yes sinuses nontender Mouth: oropharynx normal Throat: Yes posterior oropharynx normal Eyes General: appearance normal, both eyes and all related structures Neck Neck: Yes normal visual inspection, Yes no lymphadenopathy, Yes trachea midline and Yes no JVD Thyroid: Thyroid normal Chest Chest palpation & inspection: normal inspection of the chest, normal palpation of entire chest wall and no tenderness Resp Effort & Inspection: normal respiratory effort Auscultation: clear to auscultation bilaterally, no crackles and no wheezes Cardio Palpation: normal PMI Rate: regular rate Rhythm: regular rhythm Heart sounds: no gallops and no murmurs Peripheral pulses: Peripheral pulses 2+ throughout GI Palpation (GI): Soft to palpation, nontender, No hepatosplenomegaly present and no masses Auscultation: normal bowel sounds Back/Spine/Pelvis Thoracic/Lumbar Spine: thoracic and lumbar spine normal to inspection Skin General skin exam: no rashes or lesions noted Neuro General: patient oriented x3 and no focal motor deficits Cranial nerves: Yes CN's II-XII intact bilaterally Extrem General: Yes normal to inspection, Yes no clubbing, cyanosis or edema and Yes no calf tenderness Psych Speech and movement: Normal speech and movement present Assessment & Plan Assessment & Plan (1) Allergic rhinitis: Comment: PATIENT HAS VERY NONSPECIFIC SYMPTOMS HOWEVER I THINK HER MAIN PROBLEM IS ALLERGIC RHINITIS/ SINUSITIS. WITH RECENT HISTORY OF FLARE UPS. TX: PATIENT WAS EDUCATED THROUGH AN CULINARY WORKER. ADVISED TO USE VAPORIZER OR A HUMIDIFIER IN THE HOUSE . STEAM. INHALATIONS 2 OR 3 TIMES A DAY MONTELUKAST 10 MG DAILY. FLONASE NASAL SPRAY 2 SPRAY EACH NOSTRIL DAILY Code(s): J30.9 - Allergic rhinitis, unspecified (2) Asthma: Comment: PATIENT MAY HAVE MILD BRONCHIAL ASTHMA, IN ADDITION TO ALLERGIC RHINITIS. TX : AT PRESENT SHE SHOULD USE ALBUTEROL HFA 2 PUFFS Q 4-6 HOURS ONLY P.R.N.. THERE IS NO NEED TO USE A STRONG ICS/LABA/LAMA ( BREZTRI ) AGENT. I TOLD HER TO STOP USING IT AND HOLD IT FOR THE TIME BEING. PULMONARY FUNCTION TEST IS ORDERED. PATIENT WILL BE RE-EVALUATED AFTER PULMONARY FUNCTION TEST. Code(s): J45.909 - Unspecified asthma, uncomplicated Orders: Orders PFT pulmonary function test Today J30.9 - Allergic rhinitis, unspecified, J45.909 - Unspecified asthma, uncomplicated Medications: New montelukast 10 mg PO DAILY 30 tabs 2RF ALLERGIC RHINITIS 30 days Coding Level of Care Code New Pt Level 4 (04902) Diagnoses Allergic rhinitis J30.9 Asthma J45.909
[2023-01-06 14:37] VITALS: BP 132/86; PULSE 90; O2SAT 98; BMI 29.3
== END 2023-01-06 15:06 | disposition home or self-care (01) ==
PROVIDERS: PCP Internal Medicine; Referring Provider Internal Medicine; Visit Provider Internal Medicine
DX: J30.9 Allergic rhinitis, unspecified (principal); J45.909 Unspecified asthma, uncomplicated
CPT/HCPCS: 99204

== ENCOUNTER → 2023-01-06 14:17 | Outpatient (BNVA) | payer OTHER, SELFPAY | PROVIDERS: PCP Internal Medicine; Referring Provider Internal Medicine; Visit Provider Internal Medicine | DX: J45.909 Unspecified asthma, uncomplicated (principal) | CPT/HCPCS: 99202 ==

== ENCOUNTER 2023-02-07 10:11 | Outpatient (REF) | payer OTHER, SELFPAY ==
[2023-02-07 13:22] LABS: MANUAL DIFF FLAG NO
[2023-02-07 14:00] LABS: Basophils Percent Auto 0.2 % (0-2); Eosinophils Absolute Auto 0.1 X10*3/uL (0.0-0.4); Eosinophils Percent Auto 1.7 % (0-4); Imm Gran Abs Auto 0.02 X10*3/uL (0.00-0.03); Imm Gran Pct Auto 0.3 % (0.0-0.4); Lymphocytes Absolute Auto 2.6 X10*3/uL (1.2-4.9); Lymphocytes Percent Auto 40.6 % (20-40); Mean Corpuscular HGB Conc 33.3 g/dl (31.0-35.0); Mean Corpuscular Hemoglobin 31.2 pg (27.0-33.0); Mean Corpuscular Volume 93.5 fL (80.0-98.0); Mean Platelet Volume 10.3 fL (9.4-12.3); Monocytes Absolute Auto 0.4 X10*3/uL (0.1-1.2); Neutrophils Absolute Auto 3.3 x10*3/uL (2.0-8.3); Neutrophils Percent Auto 51.2 % (45-73); Platelet Count 238 X10*3/uL (160-400); Red Blood Count 4.17 X10*6/uL (4.20-5.50); Red Cell Distribution Width 12.5 % (11.0-16.0); White Blood Count 6.5 X10*3/uL (4.8-10.8)
[2023-02-07 14:29] LABS: Alanine Aminotransferase 17 U/L (0-31); Albumin Level 4.2 g/dL (3.5-5.0); Alkaline Phosphatase 82 U/L (39-117); Anion Gap 9 (12-20); Aspartate Amino Transferase 19 U/L (5-31); Bilirubin Total 0.5 mg/dL (0.0-1.0); Blood Urea Nitrogen 14 mg/dL (9-16); Calcium 9.2 mg/dL (8.4-10.2); Carbon Dioxide 32 mmol/L (22-29); Chloride 105 mmol/L (96-108); Cholesterol 203 mg/dL (<200); Estimated Glomerular Filt Rate > 60; Glucose Random 89 mg/dL (60-115); HDL Cholesterol 45 mg/dL (>40); LDL Cholesterol Calculated 132 mg/dL (<100); Potassium 3.3 mmol/L (3.3-5.1); Sodium 143 mmol/L (135-145); Thyroid Stimulating Hormone 1.97 uIU/mL (0.32-4.0); Total Protein 7.4 g/dL (6.5-8.0); Triglycerides 132 mg/dL (<150)
== END 2023-02-07 10:12 | disposition home or self-care (01) ==
LOC: HO.10HDL 10:11
PROVIDERS: Visit Provider Internal Medicine
DX: Z00.01 Encounter for general adult medical examination with abnormal findings (principal); R00.0 Tachycardia, unspecified; L28.2 Other prurigo; J45.40 Moderate persistent asthma, uncomplicated; I10 Essential (primary) hypertension
CPT/HCPCS: 36415; 80053; 80061; 84443; 85025

== ENCOUNTER 2023-02-22 10:08 | Outpatient (REF) | payer OTHER, SELFPAY ==
--- NOTE | 2023-02-22 11:04 | PFT_ITS ---
Spirometry [] FVC 106%, FEV1 103%, FEV1 OVER FVC RATIO 79. FEF 2570 582%, MVV 112%. Lung Volumes [] PATIENT WAS NOT ABLE TO PERFORM MANEUVERS FOR LUNG VOLUMES, SHE FELT CONGESTED AND HAD SOME COUGH. Diffusion Capacity [] PATIENT NOT ABLE TO PERFORM ADEQUATE MANEUVERS Methacholine Challenge [] Flow Volume Loops [] MVV [] MIP/MEP(Max inspiratory pressure/Max expiratory pressure) [] 6 Minute Walk Test [] ABG [] Interpretation [] BASED ON SPIROMETRY THERE IS NO EVIDENCE OF OBSTRUCTIVE AIRWAY DISORDER. CLINICAL CORRELATION IS RECOMMENDED. IF PATIENT NEEDS TO HAVE LUNG VOLUMES AND DIFFUSION CAPACITY CHECKED THIS CAN BE RESCHEDULED AT A LATER DATE [facility]
== END 2023-02-22 10:09 | disposition home or self-care (01) ==
LOC: HO.RESP 10:08
PROVIDERS: PCP Internal Medicine; Visit Provider Internal Medicine
DX: J45.909 Unspecified asthma, uncomplicated (principal)
CPT/HCPCS: 94010

== ENCOUNTER → 2023-02-22 11:04 | Outpatient (BNV) | payer OTHER, SELFPAY | PROVIDERS: PCP Internal Medicine; Visit Provider Internal Medicine | DX: J45.909 Unspecified asthma, uncomplicated (principal) | CPT/HCPCS: 94060; 94727 ==

== ENCOUNTER 2023-03-14 10:16 | Outpatient (AMB) | payer OTHER, SELFPAY ==
[2023-03-14 10:31] VITALS: BP 120/90; PULSE 98; O2SAT 98; BMI 29.3
--- NOTE | 2023-03-14 10:31 | MHC.OFFVIS ---
Intake Vital Signs 03/14/23 10:31 Height 5 ft 4 in Weight 171 lb BMI 29.3 BP 120/90 H Blood Pressure Location Lt brachial Position Sitting Pulse 98 Pulse Source Pulse Oximeter Pulse Oximetry (%) 98 Oxygen Delivery Method Room Air Intake Visit Reasons: PFT Follow Up/Asthma Intake Note: pt is here and stating that she has always hah this cough but yesterday burning sensation and pressure around lungs (tight) but better today. She thinks this could possibly be related to allergies. pt tried Bevespi and stated it didn't work, pcp put her on flovent 110, she also has wixela at home, she uses at home. Hay Buckler Required: Yes Hay Buckler Name: Dorothy Allergies No Known Allergies [No Known Allergies*] Allergy (Verified 03/14/23 10:55) Medication List - Last Reconciled 03/14/23 by Eric Mota MD acetaminophen ER (Tylenol 8 Hour) 650 mg PO Q8H PRN albuterol sulfate 90 mcg/actuation (Ventolin HFA) 2 puffs inhalation Q4-6H PRN amlodipine 5 mg PO DAILY atorvastatin 10 mg PO DAILY doxazosin 4 mg PO BEDTIME hydrocortisone 2.5% topical ibuprofen 600 mg PO TID loratadine 10 mg PO DAILY losartan 25 mg PO DAILY menthol-zinc oxide 0.44-20.6 % (Calmoseptine) 1 appl topical TID PRN metoprolol succinate ER 100 mg PO BID montelukast (Singulair) 10 mg PO DAILY montelukast 10 mg PO DAILY valsartan-hydrochlorothiazide 320-25 mg 1 tab PO DAILY Do you need a note to return to daycare/school/sports/work: No HPI PFT Follow Up/Asthma HPI Details 57 YEARS OLD TAMAZ[place]-SPEAKING VERY PLEASANT FEMALE. SHE IS HERE FOR FOLLOW-UP, AFTER SHE HAD SPIROMETRY PERFORMED 2 WEEKS AGO. CLAIMS ONLY OCCASIONAL MILD COUGH, AND WHEEZING. HOWEVER SHE DENIES SHORTNESS OF BREATH, ON WALKING AROUND. SHE HAS SOME CONFUSION ABOUT HER MEDS. HAS TRY THE USING BREZTRI PRESCRIBED BY A PCP, IT DID NOT HELP MUCH. SHE HAS BEEN USING FLOVENT 250 1 PUFF B.I.D. BUT IT WOULD NOT BE AVAILABLE ANYMORE. SHE DOES HAVE WIXELA AT HOME WHICH SHE IS NOT USING. COUNTS INCLUDE 234 BEDS AT THE [facility] Medical History Asthma Allergic rhinitis Hemorrhoids with complication Renal calculi HTN (hypertension) Renal cyst Surgical History Hx of tubal ligation Family History Mother HTN (hypertension) Daughter Multiple sclerosis Social History Household Members: None Housing: Apartment Alcohol intake: never Patient Tobacco Use Status: Never used Tobacco service: No Current occupational status: disabled Review of Systems Const All systems reviewed & are unremarkable except as noted in HPI and below Eyes Reports no additional complaints ENT Reports change in voice, Reports hoarseness, Reports nasal congestion and Reports nasal discharge Card Denies chest pain, Denies irregular heart rhythm and Denies leg edema Resp Reports as per HPI GI Reports no additional complaints Reports no additional complaints Musc Reports no additional complaints Skin/Breast Reports system reviewed and no additional complaints, except as documented Neuro Reports no additional complaints Psych Reports no additional complaints Endo Reports no additional complaints Aller/Immun Reports no additional complaints Physical Exam Vital Signs: Last Vital Signs Pulse 98 03/14/23 10:31 BP 120/90 H 03/14/23 10:31 Pulse Ox 98 03/14/23 10:31 Oxygen Delivery Method Room Air 03/14/23 10:31 BMI result Body Mass Index 29.3 Const General: comfortable, no acute distress, alert and awake Orientation/consciousness: patient oriented x3 HEENT Head: Yes normal to inspection General nose exam: No nasal polyps present and No nasal discharge present Face and sinus: Yes sinuses nontender Mouth: oropharynx normal Throat: Yes posterior oropharynx normal Eyes General: appearance normal, both eyes and all related structures Neck Neck: Yes normal visual inspection, Yes no lymphadenopathy, Yes trachea midline and Yes no JVD Thyroid: Thyroid normal Chest Chest palpation & inspection: normal inspection of the chest, normal palpation of entire chest wall and no tenderness Resp Effort & Inspection: normal respiratory effort Auscultation: clear to auscultation bilaterally, no crackles and no wheezes Cardio Palpation: normal PMI Rate: regular rate Rhythm: regular rhythm Heart sounds: no gallops and no murmurs Peripheral pulses: Peripheral pulses 2+ throughout GI Palpation (GI): Soft to palpation, nontender, No hepatosplenomegaly present and no masses Auscultation: normal bowel sounds Back/Spine/Pelvis Thoracic/Lumbar Spine: thoracic and lumbar spine normal to inspection Skin General skin exam: no rashes or lesions noted Neuro General: patient oriented x3 and no focal motor deficits Cranial nerves: Yes CN's II-XII intact bilaterally Extrem General: Yes normal to inspection, Yes no clubbing, cyanosis or edema and Yes no calf tenderness Psych Speech and movement: Normal speech and movement present Results Reviewed Results Reviewed: SPIROMETRY ON 02/22/2023 NORMAL NO OBTRUCTIVE LUNG DISORDER Assessment & Plan Assessment & Plan (1) Asthma: Comment: PATIENT MAY HAVE MILD BRONCHIAL ASTHMA, HOWEVER, SPIROMETRY WAS NORMAL THEN DID NOT SHOW EVIDENCE OF OBSTRUCTIVE AIRWAY DISORDER OR ANY RESPONSE TO BRONCHODILATOR THERAPY. SHE WAS NOT ABLE TO PERFORM MANEUVERS FOR TOTAL LUNG CAPACITY AND DLCO. RESULTS ARE EXPLAINED TO THE PATIENT. Code(s): J45.909 - Unspecified asthma, uncomplicated Plan: PATIENT IS EXPLAINED THAT SHE DOES NOT NEED TO USE LA/ICS AGENTS. SHE NEEDS TO USE VENTOLIN 2 PUFFS Q 4-6 HOURS BUT ONLY P.R.N.. SHE ALSO HAS WIXELA 250-50, AT HOME, ADVISE THAT IF HER SYMPTOMS OF CHEST CONGESTION AND WHEEZING GET MUCH WORSE, THEN SHE CAN USE WIXELA 1 INHALATION B.I.D. FOR A FEW DAYS. (2) Allergic rhinitis: Comment: PATIENT HAS INTERMITTENT SYMPTOMS OF NASAL CONGESTION WITH POSTNASAL DISCHARGE. MOST LIKELY SHE HAS INTERMITTENT ALLERGIC RHINITIS. Code(s): J30.9 - Allergic rhinitis, unspecified Plan: CONTINUE USING MONTELUKAST 10 MG DAILY. MAY USE LORATADINE 10 MG ONCE A DAY P.R.N.. Coding Level of Care Code Est Pt Level 3 (79058) Diagnoses Asthma J45.909 Allergic rhinitis J30.9
== END 2023-03-14 10:54 | disposition home or self-care (01) ==
PROVIDERS: PCP Internal Medicine; Visit Provider Internal Medicine
DX: J45.909 Unspecified asthma, uncomplicated (principal); J30.9 Allergic rhinitis, unspecified
CPT/HCPCS: 99213

== ENCOUNTER → 2023-03-14 10:16 | Outpatient (BNVA) | payer OTHER, SELFPAY | PROVIDERS: PCP Internal Medicine; Visit Provider Internal Medicine | DX: J45.909 Unspecified asthma, uncomplicated (principal) | CPT/HCPCS: 99212 ==

== ENCOUNTER 2023-05-09 10:30 | Outpatient (REF) | payer OTHER, SELFPAY ==
[2023-05-09 13:58] LABS: Alanine Aminotransferase 26 U/L (0-31); Albumin Level 4.3 g/dL (3.5-5.0); Alkaline Phosphatase 98 U/L (39-117); Anion Gap 9 (12-20); Aspartate Amino Transferase 23 U/L (5-31); Bilirubin Total 0.6 mg/dL (0.0-1.0); Blood Urea Nitrogen 13 mg/dL (9-16); Calcium 9.2 mg/dL (8.4-10.2); Carbon Dioxide 30 mmol/L (22-29); Chloride 106 mmol/L (96-108); Cholesterol 130 mg/dL (<200); Estimated Glomerular Filt Rate > 60; Glucose Random 98 mg/dL (60-115); HDL Cholesterol 43 mg/dL (>40); LDL Cholesterol Calculated 73 mg/dL (<100); Potassium 4.3 mmol/L (3.3-5.1); Sodium 141 mmol/L (135-145); Total Protein 7.6 g/dL (6.5-8.0); Triglycerides 72 mg/dL (<150)
== END 2023-05-09 10:31 | disposition home or self-care (01) ==
LOC: HO.10HDL 10:30
PROVIDERS: Visit Provider Internal Medicine
DX: N30.00 Acute cystitis without hematuria (principal); I10 Essential (primary) hypertension; K64.4 Residual hemorrhoidal skin tags; R00.0 Tachycardia, unspecified; R30.0 Dysuria
CPT/HCPCS: 36415; 80053; 80061

== ENCOUNTER 2023-05-16 10:06 | Outpatient (REF) | payer OTHER, SELFPAY ==
--- NOTE | ~2023-05-16 | US_ITS ---
EXAMINATION: US RETROPERITONEAL LIMITED (RENAL ONLY) CLINICAL INFORMATION: Renal calculus. COMPARISON: Ultrasound renal Doppler 09/27/2022. CT abdomen and pelvis 06/16/2022. Renal ultrasound 12/01/2022. CT abdomen and pelvis 08/11/2014. TECHNIQUE: Real-time imaging of the kidneys. FINDINGS: RIGHT KIDNEY: 11.1 x 4.2 x 4.8 cm (SAG x AP x TRV). The kidney is normal in size, contour, and echogenicity. Renal cortical thickness is normal. No calculi or focal parenchymal lesions. No hydronephrosis. LEFT KIDNEY: 10.9 x 4.8 x 4.7 cm (SAG x AP x TRV). The kidney is normal in size, contour, and echogenicity. Renal cortical thickness is normal. No calculi or focal parenchymal lesions. No hydronephrosis. 3 mm echogenic focus in the left lower renal pole, previously 2 mm with twinkle artifact though no definite shadowing may reflect a tiny stone or vascular reflector. US/US renal BI IMPRESSION: 3 mm echogenic focus in the left lower renal pole, previously 2 mm with twinkle artifact though no definite shadowing may reflect a tiny stone or vascular reflector.
== END 2023-05-16 10:07 | disposition home or self-care (01) ==
LOC: HO.US 10:06
PROVIDERS: PCP Internal Medicine; Visit Provider Nurse Practitioner Family
DX: N20.0 Calculus of kidney (principal)
CPT/HCPCS: 76775

== ENCOUNTER 2023-05-19 09:03 | Outpatient (AMB) | payer OTHER, SELFPAY ==
--- NOTE | 2023-05-19 09:53 | MHC.OFFVIS ---
Intake Intake Visit Reasons: 1yr follow up/US(set) Intake Note: Patient is present for tele visit 1yr follow up kidney stone/ultrasound (imaging 05/03/22) Urology Medications: none Blood Thinner: none Responder Required: Yes Responder Name: MILVIATIMNATO TU Accompanied by: Self / Same As Patient Allergies No Known Allergies [No Known Allergies*] Allergy (Verified 05/19/23 22:17) Medication List - Last Reconciled 05/19/23 by ALVERTO Da Silva acetaminophen ER (Tylenol 8 Hour) 650 mg PO Q8H PRN albuterol sulfate 90 mcg/actuation (Ventolin HFA) 2 puffs inhalation Q4-6H PRN amlodipine 5 mg PO DAILY atorvastatin 10 mg PO DAILY doxazosin 4 mg PO BEDTIME hydrocortisone 2.5% topical ibuprofen 600 mg PO TID loratadine 10 mg PO DAILY losartan 25 mg PO DAILY menthol-zinc oxide 0.44-20.6 % (Calmoseptine) 1 appl topical TID PRN metoprolol succinate ER 200 mg PO DAILY montelukast (Singulair) 10 mg PO DAILY montelukast 10 mg PO DAILY pyridoxine (vitamin B6) 100 mg PO DAILY 90 days valsartan-hydrochlorothiazide 320-25 mg 1 tab PO DAILY HPI HPI Comments History of Present Illness Details Stephany is a 57-year-old Luxembourgish-speaking female patient of Dr. Best. She has a past medical history of asthma, allergic rhinitis, hemorrhoids, nephrolithiasis, hypertension, and renal cysts. She presents to the office today for follow-up of her nephrolithiasis and renal cyst. In discussion with the patient today she reports to be doing and feeling well. Recent renal imaging results reviewed with the patient today. Right kidney with no lesions, hydronephrosis or calculi. Left kidney with no hydronephrosis or lesions. 3 mm echogenic focus in the lower pole left kidney. When asked reports to be drinking adequate amount of fluid daily. When asked she denies urinary urgency, urinary frequency, incontinence, nocturia, hematuria, dysuria, foul smelling urine, changes to urinary stream, fever, and or chills. She otherwise denies any urinary issues or concerns at this time. [facility] Medical History Asthma Allergic rhinitis Hemorrhoids with complication Renal calculi HTN (hypertension) Renal cyst Surgical History Hx of tubal ligation Family History Mother HTN (hypertension) Daughter Multiple sclerosis Social History Household Members: None Housing: Apartment Alcohol intake: never Patient Tobacco Use Status: Never used Tobacco service: No Current occupational status: disabled Review of Systems Const Reports no additional complaints Eyes Reports no additional complaints ENT Reports no additional complaints Card Reports no additional complaints Resp Reports as per HPI GI Reports as per HPI Reports as per HPI Musc Reports no additional complaints Neuro Reports no additional complaints Psych Reports no additional complaints Endo Reports no additional complaints Kurt/Lymph Reports no additional complaints Aller/Immun Reports no additional complaints Physical Exam Const General: cooperative, healthy appearing, comfortable, no acute distress, well developed, alert and awake Orientation/consciousness: patient oriented x3 Limitations: no limitations HEENT Head: Yes normal to inspection, Yes normocephalic and Yes atraumatic Ears: hearing grossly normal bilaterally Eyes General: appearance normal, both eyes and all related structures Neck Neck: Yes normal visual inspection and Yes trachea midline Chest Chest palpation & inspection: normal inspection of the chest Resp Effort & Inspection: normal respiratory effort and able to speak in complete sentences Cardio Rate: regular rate GI Inspection: Yes normal to inspection General: Yes no CVA tenderness Back/Spine/Pelvis Back: no CVA tenderness Skin General skin exam: no rashes or lesions noted Neuro General: patient oriented x3 Extrem General: Yes normal to inspection Psych Appearance: grossly normal and well kempt Mental Status: mental status grossly normal Speech and movement: Normal speech and movement present and Clear speech present Affect: normal affect Attitude: cooperative Thought process: Normal thought process present Thought content: Normal thought content present Insight: Fair insight present (Psych) Judgement: Fair judgement present (Psych) Results AMB Urinalysis, Automated UA Leukoctes 0 Rigo/uL Last Edit by Mallorie Petit on 05/19/23 10:03 UA Nitrite Negative Last Edit by Mallorie Petit on 05/19/23 10:03 UA Urobilinogen 0.2 mg/dL Last Edit by Mallorie Petit on 05/19/23 10:03 UA Protein 15 mg/dL Last Edit by Mallorie Petit on 05/19/23 10:03 UA pH 6.0 Last Edit by Mallorie Petit on 05/19/23 10:03 UA Blood 25 Herb/uL Last Edit by Mallorie Petit on 05/19/23 10:03 UA Specific [place] 1.015 Last Edit by Mallorie Petit on 05/19/23 10:03 UA Ketone Negative Last Edit by Mallorie Petit on 05/19/23 10:03 UA Bilirubin 0 mg/dL Last Edit by Mallorie Petit on 05/19/23 10:03 UA Glucose 0 mg/dL Last Edit by Mallorie Petit on 05/19/23 10:03 Results Reviewed Results Reviewed: Laboratory Last Values Urine pH (Auto) 6.0 05/19/23 09:59 Specific [place] (Auto) 1.015 05/19/23 09:59 Urine Protein (Auto) 15 mg/dL 05/19/23 09:59 Glucose (UA)(Auto) 0 mg/dL 05/19/23 09:59 Urine Ketones (Auto) Negative 05/19/23 09:59 Urine Blood (Auto) 25 Herb/uL 05/19/23 09:59 Urine Nitrite (Auto) Negative 05/19/23 09:59 Urine Bilirubin (Auto) 0 mg/dL 05/19/23 09:59 Urine Urobilinogen (Auto) 0.2 mg/dL 05/19/23 09:59 Leukocyte Esterase (Auto) 0 Rigo/uL 05/19/23 09:59 Date of Service: 05/16/23 EXAMINATION: US RETROPERITONEAL LIMITED (RENAL ONLY) FINDINGS: RIGHT KIDNEY: 11.1 x 4.2 x 4.8 cm (SAG x AP x TRV). The kidney is normal in size, contour, and echogenicity. Renal cortical thickness is normal. No calculi or focal parenchymal lesions. No hydronephrosis. LEFT KIDNEY: 10.9 x 4.8 x 4.7 cm (SAG x AP x TRV). The kidney is normal in size, contour, and echogenicity. Renal cortical thickness is normal. No calculi or focal parenchymal lesions. No hydronephrosis. 3 mm echogenic focus in the left lower renal pole, previously 2 mm with twinkle artifact though no definite shadowing may reflect a tiny stone or vascular reflector. IMPRESSION: 3 mm echogenic focus in the left lower renal pole, previously 2 mm with twinkle artifact though no definite shadowing may reflect a tiny stone or vascular reflector. Assessment & Plan Assessment & Plan (1) Renal cyst: Code(s): N28.1 - Cyst of kidney, acquired (2) Renal calculi: Code(s): N20.0 - Calculus of kidney Plan Recent renal ultrasound results reviewed with the patient today; as noted above Educated, discussed, and instructed on the importance of continuing to drink plenty of fluid daily. Discussed adding 1 oz of lemon juice to water daily. Start vitamin B6 as prescribed anddiscussed. Patient currently denies any bothersome urinary issues or concerns. She reports be happy with current voiding parameters. Renal ultrasound in 1 year Follow-up in 1 year with imaging to be completed prior; or sooner with any issues, concerns, and or questions. Orders: Orders AMB Urinalysis Automated Today Z13.9 - Encounter for screening, unspecified US renal BI 1 Year N20.0 - Calculus of kidney Medications: New pyridoxine (vitamin B6) 100 mg PO DAILY 90 days 90 tabs 1RF N20.0 - Calculus of kidney Patient Instructions: The patient had an opportunity to ask questions regarding the treatment plan. All questions were answered. Physical exam, labs, and imaging were discussed and reviewed in detail. As well as risks, benefits, and discussion of treatment choices. No major barriers to understanding were identified. The patient expressed understanding and agreement with the above treatment plan. The patient was made aware they should contact our office by phone for worsening of their current condition, the appearance of new symptoms, or with any questions or concerns. Compliance is encouraged with any medications and follow up testing that is ordered. It is a privilege to be allowed the opportunity to participate in? your urological care.? Again, if you have any questions or concerns If you have any questions or concerns please do not hesitate to contact me. The office is [phone]. This note is constructed using voice recognition software. While every effort has been made to ensure accuracy automatic machines supervisor errors may have been included. Yours sincerely, Lorie Quiñones, TEXTILE TECHNOLOGIST-BC Coding Level of Care Code Est Pt Level 4 (46784) Diagnoses Renal cyst N28.1 Renal calculi N20.0
== END 2023-05-19 10:15 | disposition home or self-care (01) ==
PROVIDERS: PCP Internal Medicine; Visit Provider Nurse Practitioner Family
DX: N28.1 Cyst of kidney, acquired (principal); N20.0 Calculus of kidney
CPT/HCPCS: 99214

== ENCOUNTER → 2023-05-19 09:03 | Outpatient (BNVA) | payer OTHER, SELFPAY | PROVIDERS: Visit Provider Nurse Practitioner Family | DX: N20.0 Calculus of kidney (principal); N28.1 Cyst of kidney, acquired | CPT/HCPCS: 81003; 99212 ==

== ENCOUNTER 2023-06-13 10:00 | Outpatient (REF) | payer OTHER, SELFPAY | END 2023-06-13 10:01 | disposition home or self-care (01) | LOC: HO.MAMMO 10:00 | PROVIDERS: PCP Internal Medicine; Visit Provider Internal Medicine | DX: Z12.31 Encounter for screening mammogram for malignant neoplasm of breast (principal) | CPT/HCPCS: 77063; 77067 ==

== ENCOUNTER → 2023-06-13 10:15 | Outpatient (BNV) | payer OTHER, SELFPAY | PROVIDERS: PCP Internal Medicine; Visit Provider Radiology Diagnostic Radiology | DX: Z12.31 Encounter for screening mammogram for malignant neoplasm of breast (principal) | CPT/HCPCS: 77063; 77067 ==

== ENCOUNTER 2023-07-04 09:39 | Outpatient (AMB) | payer OTHER, SELFPAY ==
--- NOTE | 2023-07-04 09:46 | A.OFFVIS_ITS ---
Vital Signs 07/04/23 09:47 Height 5 ft 4 in Weight 167 lb 12.348 oz BMI 28.8 BP 142/86 H Blood Pressure Location Rt brachial Position Sitting Pulse 89 Pulse Source Pulse Oximeter Pulse Oximetry (%) 97 Oxygen Delivery Method Room Air Intake Visit Reasons: 1 yr f/u appt for OA Intake Note: Patient last seen by Jaylin Soto 07/02/22 presents today for 1 year follow up. Reports L knee pain worse with use, cortisone in the past, not interested in injection today. School Bus Operator Required: Yes School Bus Operator Language: Supervisor Paper Coating Name: JOLEEN sAcencio Bones- form signed Information Interpreted: clinical only Accompanied by: [facility] Allergies No Known Allergies [No Known Allergies*] Allergy (Verified 07/04/23 09:51) Medication List - Last Reconciled 07/04/23 by Chery Mahan MD acetaminophen ER (Tylenol 8 Hour) 650 mg PO Q8H PRN albuterol sulfate 90 mcg/actuation (Ventolin HFA) 2 puffs inhalation Q4-6H PRN amlodipine 5 mg PO DAILY atorvastatin 40 mg PO DAILY doxazosin 4 mg PO BEDTIME hydrocortisone 2.5% topical ibuprofen 600 mg PO TID loratadine 10 mg PO DAILY losartan 25 mg PO DAILY menthol-zinc oxide 0.44-20.6 % (Calmoseptine) 1 appl topical TID PRN metoprolol succinate ER 200 mg PO DAILY montelukast 10 mg PO DAILY pyridoxine (vitamin B6) 100 mg PO DAILY 90 days valsartan-hydrochlorothiazide 320-25 mg 1 tab PO DAILY HPI Comments Details: 57-year-old female with osteoarthritis returns for follow-up. She was last seen by Isela Soto 06/2022. Patient followed up with Isela Soto in the past for left knee pain which was deemed to be due to osteoarthritis. She received knee injections in the past. She states that her knees are better now. She does plenty of walking and stairs. She states today she has been having pain in her right elbow and forearm. She does not recall any recent trauma or overuse. [facility], [facility] Medical History Asthma Allergic rhinitis Hemorrhoids with complication Renal calculi HTN (hypertension) Renal cyst Surgical History Hx of tubal ligation Family History Mother HTN (hypertension) Daughter Multiple sclerosis Social History Household Members: None Housing: Apartment Alcohol intake: never Patient Tobacco Use Status: Never used Tobacco service: No Current occupational status: disabled Review of Systems Musc Reports arthralgias Physical Exam Vital Signs: Last Vital Signs Pulse 89 07/04/23 09:47 BP 142/86 H 07/04/23 09:47 Pulse Ox 97 07/04/23 09:47 Oxygen Delivery Method Room Air 07/04/23 09:47 BMI result Body Mass Index 28.8 Const General: cooperative, healthy appearing and comfortable Nutritional Appearance: overweight Orientation/consciousness: patient oriented x3 Limitations: no limitations HEENT Head: Yes normocephalic and Yes atraumatic Resp Effort & Inspection: normal respiratory effort and able to speak in complete sentences Neuro General: patient oriented x3 Extrem Other: Rare fibromyalgia tender points Tenderness upon palpation of the right lateral epicondyle for the common extensor origin but no swelling with negative resisted wrist extension test. Negative resisted wrist flexion test on the right Similar tenderness on left lateral epicondyle with no swelling, negative resisted wrist extension test and negative resisted wrist flexion test Normal range of motion of elbows and shoulders without pain Assessment & Plan Assessment & Plan (1) Pain in joint of right elbow: Code(s): M25.521 - Pain in right elbow Category: Medical Plan: Right lateral epicondyle tenderness but no swelling with negative resisted wrist extension test, negative resisted wrist flexion test. Likely mild tennis elbow versus fibromyalgia. No specific treatment is warranted. Follow-up as needed Plan I spent 15 minutes reviewing patient's chart, evaluating patient, , counseling patient and documenting in the chart Coding Level of Care Code Est Pt Level 3 (44102) Diagnoses Pain in joint of right elbow M25.521
[2023-07-04 09:47] VITALS: BP 142/86; PULSE 89; O2SAT 97; BMI 28.8
== END 2023-07-04 11:09 | disposition home or self-care (01) ==
PROVIDERS: PCP Internal Medicine; Visit Provider Student in an Organized Health Care Education/Training Program
DX: M25.521 Pain in right elbow (principal)
CPT/HCPCS: 99213

== ENCOUNTER → 2023-07-04 09:39 | Outpatient (BNVA) | payer OTHER, SELFPAY | PROVIDERS: PCP Internal Medicine; Visit Provider Student in an Organized Health Care Education/Training Program | DX: M25.521 Pain in right elbow (principal); M17.12 Unilateral primary osteoarthritis, left knee | CPT/HCPCS: 99212 ==

== ENCOUNTER 2023-09-15 09:29 | Outpatient (AMB) | payer OTHER, SELFPAY ==
[2023-09-15 09:45] VITALS: BP 140/80; PULSE 85; O2SAT 99; BMI 29.0
--- NOTE | 2023-09-15 09:45 | MHC.OFFVIS ---
Vital Signs 09/15/23 09:45 Height 5 ft 4 in Weight 169 lb BMI 29.0 BP 140/80 H Blood Pressure Location Lt brachial Position Sitting Pulse 85 Pulse Source Pulse Oximeter Pulse Oximetry (%) 99 Oxygen Delivery Method Room Air Intake Visit Reasons: Asthma Intake Note: pt is here for follow up of asthma and states she feels fine Wireless Cellular Technician Required: Yes Allergies No Known Allergies [No Known Allergies*] Allergy (Verified 09/15/23 09:50) Medication List - Last Reconciled 09/15/23 by Eric Mota MD acetaminophen ER (Tylenol 8 Hour) 650 mg PO Q8H PRN albuterol sulfate 90 mcg/actuation (Ventolin HFA) 2 puffs inhalation Q4-6H PRN amlodipine 5 mg PO DAILY atorvastatin 40 mg PO DAILY doxazosin 4 mg PO BEDTIME hydrocortisone 2.5% topical ibuprofen 600 mg PO TID loratadine 10 mg PO DAILY losartan 25 mg PO DAILY menthol-zinc oxide 0.44-20.6 % (Calmoseptine) 1 appl topical TID PRN metoprolol succinate ER 200 mg PO DAILY montelukast 10 mg PO DAILY pyridoxine (vitamin B6) 100 mg PO DAILY 90 days valsartan-hydrochlorothiazide 320-25 mg 1 tab PO DAILY Do you need a note to return to daycare/school/sports/work: No HPI HPI Asthma: Details: 57 years old very pleasant Thai-speaking female is here for follow-up for her bronchial asthma and allergic rhinitis. She claims that she has been doing well except for ongoing intermittent nasal congestion and postnasal drip. Asthma has been under good control and she denies any wheezing attacks. Has not needed to use albuterol except for a few occasions. She does have mild intermittent cough which is probably more related to her allergic rhinitis. She has been using montelukast only as needed when she has increased nasal congestion. She has been out of Flonase , does use loratadine 10 mg daily. FORMERLY [facility], [facility]–1983 Medical History Asthma Allergic rhinitis Hemorrhoids with complication Renal calculi HTN (hypertension) Renal cyst Surgical History Hx of tubal ligation Family History Mother HTN (hypertension) Daughter Multiple sclerosis Social History Household Members: None Housing: Apartment Alcohol intake: never Patient Tobacco Use Status: Never used Tobacco service: No Current occupational status: disabled Review of Systems Const All systems reviewed & are unremarkable except as noted in HPI and below Eyes Reports no additional complaints ENT Reports change in voice, Reports hoarseness, Reports nasal congestion and Reports nasal discharge Card Denies chest pain, Denies irregular heart rhythm and Denies leg edema Resp Reports as per HPI GI Reports no additional complaints Reports no additional complaints Musc Reports no additional complaints Skin/Breast Reports system reviewed and no additional complaints, except as documented Neuro Reports no additional complaints Psych Reports no additional complaints Endo Reports no additional complaints Aller/Immun Reports no additional complaints Physical Exam Vital Signs: Last Vital Signs Pulse 85 09/15/23 09:45 BP 140/80 H 09/15/23 09:45 Pulse Ox 99 09/15/23 09:45 Oxygen Delivery Method Room Air 09/15/23 09:45 BMI result Body Mass Index 29.0 Const General: comfortable, no acute distress, alert and awake Orientation/consciousness: patient oriented x3 HEENT Head: Yes normal to inspection General nose exam: No nasal polyps present and No nasal discharge present Face and sinus: Yes sinuses nontender Mouth: oropharynx normal Throat: Yes posterior oropharynx normal Eyes General: appearance normal, both eyes and all related structures Neck Neck: Yes normal visual inspection, Yes no lymphadenopathy, Yes trachea midline and Yes no JVD Thyroid: Thyroid normal Chest Chest palpation & inspection: normal inspection of the chest, normal palpation of entire chest wall and no tenderness Resp Effort & Inspection: normal respiratory effort Auscultation: clear to auscultation bilaterally, no crackles and no wheezes Cardio Palpation: normal PMI Rate: regular rate Rhythm: regular rhythm Heart sounds: no gallops and no murmurs Peripheral pulses: Peripheral pulses 2+ throughout GI Palpation (GI): Soft to palpation, nontender, No hepatosplenomegaly present and no masses Auscultation: normal bowel sounds Back/Spine/Pelvis Thoracic/Lumbar Spine: thoracic and lumbar spine normal to inspection Skin General skin exam: no rashes or lesions noted Neuro General: patient oriented x3 and no focal motor deficits Cranial nerves: Yes CN's II-XII intact bilaterally Extrem General: Yes normal to inspection, Yes no clubbing, cyanosis or edema and Yes no calf tenderness Psych Speech and movement: Normal speech and movement present Assessment & Plan Assessment & Plan (1) Allergic rhinitis: Comment: PATIENT HAS INTERMITTENT SYMPTOMS OF NASAL CONGESTION WITH POSTNASAL DISCHARGE. MOST LIKELY SHE HAS INTERMITTENT ALLERGIC RHINITIS. Code(s): J30.9 - Allergic rhinitis, unspecified Category: Medical Plan: Advised to use montelukast 10 mg daily regularly. Flonase nasal spray 2 spray in each nostril daily. Use Claritin 10 mg once a day only p.r.n. when there is increased nasal congestion. (2) Asthma: Comment: PATIENT MAY HAVE MILD BRONCHIAL ASTHMA, SPIROMETRY WAS NORMAL AND DID NOT SHOW ANY OBSTRUCTIVE AIRWAY DISORDER OR ANY RESPONSE TO BRONCHODILATOR THERAPY. Code(s): J45.909 - Unspecified asthma, uncomplicated Category: Medical Plan: PATIENT NEEDS ONLY P.R.N. USE OF VENTOLIN 2 PUFFS Q 4-6 HOURS IN CASE OF PERSISTENT BOUTS OF COUGH OR WHEEZING. SHE SHOULD CONTINUE MONTELUKAST 10 MG DAILY A PREVENTIVE AGENT. Medications: New fluticasone propionate 50 mcg/actuation (Children's Flonase Allergy Relief) administer into each nostril 2 sprays intranasal DAILY 16 grams 3RF ALLERGIC RHINITIS 30 days Refilled montelukast 10 mg PO DAILY 90 tabs 3RF for allergic rhinitis Coding Level of Care Code Est Pt Level 3 (27105) Diagnoses Allergic rhinitis J30.9 Asthma J45.909
== END 2023-09-15 09:57 | disposition home or self-care (01) ==
PROVIDERS: PCP Internal Medicine; Visit Provider Internal Medicine
DX: J30.9 Allergic rhinitis, unspecified (principal); J45.909 Unspecified asthma, uncomplicated
CPT/HCPCS: 99213

== ENCOUNTER → 2023-09-15 09:29 | Outpatient (BNVA) | payer OTHER, SELFPAY | PROVIDERS: PCP Internal Medicine; Visit Provider Internal Medicine | DX: J45.909 Unspecified asthma, uncomplicated (principal) | CPT/HCPCS: 99212 ==

== ENCOUNTER → 2023-09-26 08:45 | Outpatient (BNVA) | payer OTHER, SELFPAY | PROVIDERS: PCP Internal Medicine; Visit Provider Obstetrics & Gynecology ==

== ENCOUNTER 2023-11-14 09:48 | Outpatient (REF) | payer OTHER, SELFPAY ==
[2023-11-16 14:24] LABS: HPV mRNA E6/E7 Not Detected (Not Detected)
== END 2023-11-14 09:49 | disposition home or self-care (01) ==
LOC: HO.LNP 09:48
PROVIDERS: PCP Internal Medicine; Visit Provider Obstetrics & Gynecology
DX: Z01.419 Encounter for gynecological examination (general) (routine) without abnormal findings (principal)
CPT/HCPCS: 87624; 88175

== ENCOUNTER 2023-11-14 09:48 | Outpatient (AMB) | payer OTHER, SELFPAY ==
--- NOTE | 2023-09-26 10:43 | A.OFFVIS_ITS ---
Vital Signs 11/14/23 10:06 Height 5 ft 4 in Weight 167 lb 8.821 oz BMI 28.8 BP 142/86 H Intake Visit Reasons: NEUROLOGY TECHNICIAN annual exam/DO NOT RS Sales Agent Financial Report Service Required: Yes Sales Agent Financial Report Service Language: School Administrator Services: Sales Agent Financial Report Service Present (in person) Sales Agent Financial Report Service Name: Shanon KOO Information Interpreted: non-clinical & clinical Manager Corporate Marketing: Manager Corporate Marketing Present (Shanon KOO) Accompanied by: Self / Same As Patient Allergies No Known Allergies [No Known Allergies*] Allergy (Verified 11/14/23 10:16) Post menopausal: Yes HPI Comments Details: Presenting for annual exam. No complaints. Last Pap/HPV Last Mammogram was BI-RADS 1 in 06/28 Last Colonoscopy was done in 02/21, the recommendation was to repeat in 10 years [facility] Medical History Asthma Allergic rhinitis Hemorrhoids with complication Renal calculi HTN (hypertension) Renal cyst Surgical History Hx of tubal ligation Family History Mother HTN (hypertension) Daughter Multiple sclerosis Social History Household Members: None Housing: Apartment Alcohol intake: never Patient Tobacco Use Status: Never used Tobacco service: No Current occupational status: disabled Female Reproductive History Menstrual control method: permanent sterilization Date of Mammogram: 06/13/23 Review of Systems Const All systems reviewed & are unremarkable except as noted in HPI and below Reports as per HPI and Reports no additional complaints Card Reports as per HPI Resp Reports as per HPI GI Reports no additional complaints Reports no additional complaints Physical Exam Vital Signs: Last Vital Signs BP 142/86 H 11/14/23 10:06 BMI result Body Mass Index 28.8 Const General: cooperative, healthy appearing and comfortable Chest Chest palpation & inspection: normal inspection of the chest and normal palpation of entire chest wall Breast/axilla inspection: normal inspection of the breasts and normal inspection of the axillae Breast/axilla palpation: normal palpation of the breasts, normal palpation of the axillae and no axillary lymphadenopathy Resp Effort & Inspection: normal respiratory effort Auscultation: clear to auscultation bilaterally Percussion: percussion normal Cardio Palpation: normal PMI Rate: regular rate Rhythm: regular rhythm Heart sounds: no murmurs and no rubs Peripheral pulses: Peripheral pulses 2+ throughout GI Inspection: Yes normal to inspection Palpation (GI): Soft to palpation, nontender, no guarding, not rigid and No hepatosplenomegaly present Percussion: Yes normal to percussion Auscultation: normal bowel sounds Rectal Exam - Female: deferred General: Yes bladder normal to palpation External Female Exam: No lesion Speculum Exam - Vagina: normal appearance of the vagina, normal palpation, normal vaginal discharge and not erythematous Speculum Exam - Cervix: normal appearance of the cervix and normal palpation Bimanual exam- vagina & uterus: normal bimanual exam, normal palpation, uterine size normal, bladder normal to palpation, consistency normal and normal palpation Bimanual Exam- Adnexa, other: normal adnexae, no masses and no tenderness Assessment & Plan Assessment & Plan (1) Well woman exam: Code(s): Z01.419 - Encounter for gynecological examination (general) (routine) without abnormal findings Category: Medical Plan: Co testing done. Counseled the patient about the recommended dietary allowance of 1200 mg of Calcium & 600 IU of vitamin D. Instructions given the patient to schedule next screening Mammogram in 06/29. The patient was instructed to perform monthly self-breast exams and schedule annual exam in a year. All questions answered and the patient verbalized understanding. Coding Level of Care Code Est Pt Prev Care 40-64y(76782) Diagnoses Well woman exam Z01.419
[2023-11-14 10:06] VITALS: BP 142/86; BMI 28.8
== END 2023-11-14 11:19 | disposition home or self-care (01) ==
PROVIDERS: PCP Internal Medicine; Visit Provider Obstetrics & Gynecology
DX: Z01.419 Encounter for gynecological examination (general) (routine) without abnormal findings (principal)
CPT/HCPCS: 99396

== ENCOUNTER 2023-12-12 09:54 | Outpatient (REF) | payer OTHER, SELFPAY ==
[2023-12-12 10:37] LABS: MANUAL DIFF FLAG NO
[2023-12-12 10:44] LABS: Basophils Percent Auto 0.3 % (0-2); Eosinophils Absolute Auto 0.1 X10*3/uL (0.0-0.4); Eosinophils Percent Auto 1.4 % (0-4); Hematocrit 38.3 % (37.0-47.0); Imm Gran Abs Auto 0.02 X10*3/uL (0.00-0.03); Imm Gran Pct Auto 0.3 % (0.0-0.4); Lymphocytes Absolute Auto 2.8 X10*3/uL (1.2-4.9); Lymphocytes Percent Auto 35.9 % (20-40); Mean Corpuscular HGB Conc 33.9 g/dl (31.0-35.0); Mean Corpuscular Hemoglobin 31.3 pg (27.0-33.0); Mean Corpuscular Volume 92.1 fL (80.0-98.0); Mean Platelet Volume 9.8 fL (9.4-12.3); Monocytes Absolute Auto 0.5 X10*3/uL (0.1-1.2); Monocytes Percent Auto 5.7 % (2-11); Neutrophils Absolute Auto 4.4 x10*3/uL (2.0-8.3); Neutrophils Percent Auto 56.4 % (45-73); Platelet Count 226 X10*3/uL (160-400); Red Blood Count 4.16 X10*6/uL (4.20-5.50); Red Cell Distribution Width 12.3 % (11.0-16.0); White Blood Count 7.9 X10*3/uL (4.8-10.8)
[2023-12-12 11:00] LABS: Alanine Aminotransferase 17 U/L (0-31); Albumin Level 4.2 g/dL (3.5-5.0); Alkaline Phosphatase 85 U/L (39-117); Anion Gap 12 (12-20); Aspartate Amino Transferase 17 U/L (5-31); Bilirubin Total 0.5 mg/dL (0.0-1.0); Blood Urea Nitrogen 14 mg/dL (9-16); Calcium 9.2 mg/dL (8.4-10.2); Carbon Dioxide 30 mmol/L (22-29); Chloride 103 mmol/L (96-108); Cholesterol 152 mg/dL (<200); Estimated Glomerular Filt Rate > 60; Glucose Random 105 mg/dL (60-115); HDL Cholesterol 46 mg/dL (>40); LDL Cholesterol Calculated 79 mg/dL (<100); Sodium 142 mmol/L (135-145); Total Protein 7.3 g/dL (6.5-8.0); Triglycerides 135 mg/dL (<150)
== END 2023-12-12 09:55 | disposition home or self-care (01) ==
LOC: HO.10HDL 09:54
PROVIDERS: Visit Provider Internal Medicine
DX: E78.00 Pure hypercholesterolemia, unspecified (principal); I10 Essential (primary) hypertension; J00 Acute nasopharyngitis [common cold]; J45.909 Unspecified asthma, uncomplicated
CPT/HCPCS: 36415; 80053; 80061; 85025

== ENCOUNTER 2024-02-20 10:41 | Outpatient (REF) | payer OTHER, SELFPAY | END 2024-02-20 10:42 | disposition home or self-care (01) | LOC: HO.10HDLNP 10:41 | PROVIDERS: Visit Provider Internal Medicine | DX: I10 Essential (primary) hypertension (principal); N30.01 Acute cystitis with hematuria; R30.0 Dysuria | CPT/HCPCS: 87086 ==

== ENCOUNTER 2024-03-26 10:06 | Outpatient (AMB) | payer OTHER, SELFPAY ==
[2024-03-26 10:23] VITALS: BP 132/82; PULSE 91; O2SAT 99; BMI 29.7
--- NOTE | 2024-03-26 10:23 | MHC.OFFVIS ---
Vital Signs 03/26/24 10:23 Height 5 ft 4 in Weight 173 lb 1.006 oz BMI 29.7 BP 132/82 Blood Pressure Location Lt brachial Position Sitting Pulse 91 Pulse Source Pulse Oximeter Pulse Oximetry (%) 99 Oxygen Delivery Method Room Air Intake Visit Reasons: asthma Intake Note: pt is here for follow up and feels good, Plastics Technician Required: Yes Plastics Technician Services: Plastics Technician Present Plastics Technician Name: yolis Allergies No Known Allergies [No Known Allergies*] Allergy (Verified 03/26/24 10:37) Medication List - Last Reconciled 03/26/24 by Eric Mota MD acetaminophen ER (Tylenol 8 Hour) 650 mg PO Q8H PRN albuterol sulfate 90 mcg/actuation (Ventolin HFA) 2 puffs inhalation Q4-6H PRN amlodipine 5 mg PO DAILY atorvastatin 40 mg PO DAILY doxazosin 4 mg PO BEDTIME fluticasone propionate 50 mcg/actuation (Children's Flonase Allergy Relief) 2 sprays intranasal DAILY 30 days hydrocortisone 2.5% topical ibuprofen 600 mg PO TID loratadine 10 mg PO DAILY losartan 25 mg PO DAILY menthol-zinc oxide 0.44-20.6 % (Calmoseptine) 1 appl topical TID PRN metoprolol succinate ER 200 mg PO DAILY montelukast 10 mg PO DAILY pyridoxine (vitamin B6) 100 mg PO DAILY 90 days valsartan-hydrochlorothiazide 320-25 mg 1 tab PO DAILY Do you need a note to return to daycare/school/sports/work: No HPI HPI asthma: Details: This 58 years old very pleasant female comes after 6 months for her routine follow-up. She is being treated for chronic allergic rhinitis and mild bronchial asthma. Most of the time her symptoms have remained well controlled as long as she is using her meds. Basically she is using montelukast 10 mg daily and Flonase nasal spray 2 sprays in each nostril daily. Still has some increased nasal congestion and cough once in a while and she has to use OTC antihistaminics. For breathing she has mild intermittent cough and wheezing, and uses albuterol p.r.n.. She has not required any controlling agents. She is nonsmoker. FORMERLY [facility] Medical History Asthma Allergic rhinitis Hemorrhoids with complication Renal calculi HTN (hypertension) Renal cyst Surgical History Hx of tubal ligation Family History Mother HTN (hypertension) Daughter Multiple sclerosis Social History Household Members: None Housing: Apartment Alcohol intake: never Patient Tobacco Use Status: Never used Tobacco service: No Current occupational status: disabled Review of Systems Const All systems reviewed & are unremarkable except as noted in HPI and below Eyes Reports no additional complaints ENT Reports change in voice, Reports hoarseness, Reports nasal congestion and Reports nasal discharge Card Denies chest pain, Denies irregular heart rhythm and Denies leg edema Resp Reports as per HPI GI Reports no additional complaints Reports no additional complaints Musc Reports no additional complaints Skin/Breast Reports system reviewed and no additional complaints, except as documented Neuro Reports no additional complaints Psych Reports no additional complaints Endo Reports no additional complaints Aller/Immun Reports no additional complaints Physical Exam Vital Signs: Last Vital Signs Pulse 91 03/26/24 10:23 BP 132/82 03/26/24 10:23 Pulse Ox 99 03/26/24 10:23 Oxygen Delivery Method Room Air 03/26/24 10:23 BMI result Body Mass Index 29.7 Const General: comfortable, no acute distress, alert and awake Orientation/consciousness: patient oriented x3 HEENT Head: Yes normal to inspection General nose exam: No nasal polyps present and No nasal discharge present Face and sinus: Yes sinuses nontender Mouth: oropharynx normal Throat: Yes posterior oropharynx normal Eyes General: appearance normal, both eyes and all related structures Neck Neck: Yes normal visual inspection, Yes no lymphadenopathy, Yes trachea midline and Yes no JVD Thyroid: Thyroid normal Chest Chest palpation & inspection: normal inspection of the chest, normal palpation of entire chest wall and no tenderness Resp Effort & Inspection: normal respiratory effort Auscultation: clear to auscultation bilaterally, no crackles and no wheezes Cardio Palpation: normal PMI Rate: regular rate Rhythm: regular rhythm Heart sounds: no gallops and no murmurs Peripheral pulses: Peripheral pulses 2+ throughout GI Palpation (GI): Soft to palpation, nontender, No hepatosplenomegaly present and no masses Auscultation: normal bowel sounds Back/Spine/Pelvis Thoracic/Lumbar Spine: thoracic and lumbar spine normal to inspection Skin General skin exam: no rashes or lesions noted Neuro General: patient oriented x3 and no focal motor deficits Cranial nerves: Yes CN's II-XII intact bilaterally Extrem General: Yes normal to inspection, Yes no clubbing, cyanosis or edema and Yes no calf tenderness Psych Speech and movement: Normal speech and movement present Assessment & Plan Assessment & Plan (1) Allergic rhinitis: Comment: PATIENT HAS INTERMITTENT SYMPTOMS OF NASAL CONGESTION WITH POSTNASAL DISCHARGE. MOST LIKELY SHE HAS INTERMITTENT ALLERGIC RHINITIS. Code(s): J30.9 - Allergic rhinitis, unspecified Category: Medical Plan: Continue montelukast 10 mg once a day And Flonase 2 spray in each nostril daily May use loratadine 10 mg once a day p.r.n. for increased symptoms. (2) Asthma: Comment: PATIENT HAS HAD MILD BRONCHIAL ASTHMA, SPIROMETRY WAS NORMAL AND DID NOT SHOW ANY OBSTRUCTIVE AIRWAY DISORDER OR ANY RESPONSE TO BRONCHODILATOR THERAPY. Code(s): J45.909 - Unspecified asthma, uncomplicated Category: Medical Plan: USE ALBUTEROL HFA 2 PUFFS Q.6 HOURS ONLY P.R.N. FOR SUSTAINED COUGH OR WHEEZING. Coding Level of Care Code Est Pt Level 3 (05971) Diagnoses Allergic rhinitis J30.9 Asthma J45.909
== END 2024-03-26 10:44 | disposition home or self-care (01) ==
PROVIDERS: PCP Internal Medicine; Visit Provider Internal Medicine
DX: J30.9 Allergic rhinitis, unspecified (principal); J45.909 Unspecified asthma, uncomplicated
CPT/HCPCS: 99213

== ENCOUNTER → 2024-03-26 10:06 | Outpatient (BNVA) | payer OTHER, SELFPAY | PROVIDERS: PCP Internal Medicine; Visit Provider Internal Medicine | DX: J45.909 Unspecified asthma, uncomplicated (principal) | CPT/HCPCS: 99212 ==

== ENCOUNTER 2024-04-30 08:18 | Outpatient (REF) | payer OTHER, SELFPAY ==
--- OUTSIDE RECORDS SUMMARY | 2024-04-30 08:22 | XMS_ITS | Clinical Summary ---
Author Organization [facility] Address [address] [place] [address] Phone Care Team Providers Care Boy'S Adviser Name Role Phone Sherley Best MD Primary Care Provider Allergies Active Allergy Reactions Criticality Noted Date Comments Jaydon Inhibitors Other (see comments) 06/11/2020 Amlodipine Other (see comments) 06/11/2020 Losartan Other (see comments) 06/11/2020 Medications fluticasone (FLONASE) 50 MCG/ACT nasal spray Active albuterol HFA (PROVENTIL HFA;VENTOLIN HFA) 108 (90 Base) MCG/ACT inhaler Active fluticasone-syed meterol (ADVAIR DISKUS) 100-50 MCG/DOSE diskus inhaler Active loratadine (CLARITIN) 10 MG tablet Take 1 tablet by mouth 1 (one) time each day Active montelukast (SINGULAIR) 10 MG tablet Take 1 tablet by mouth 1 (one) time each day Active valsartan-hydro CHLOROthiazide (DIOVAN-HCT) 320-25 MG per tablet 07/08/2020 Active metoprolol succinate XL (TOPROL-XL) 100 MG 24 hr tablet Take 100 mg by mouth 1 (one) time each day Do not crush or chew. Active doxazosin (CARDURA) 4 MG tablet TOME YANA TABLETA TODOS LOS TIM AT NIGHT 90 tablet 2 05/02/2022 Active amLODIPine (NORVASC) 5 MG tablet Take 10 mg by mouth 1 (one) time each day 06/19/2022 Active Hydrocortisone, Perianal, 2.5 % cream 08/25/2022 Active atorvastatin (LIPITOR) 40 MG tablet Take 40 mg by mouth 1 (one) time each day Active Active Problems Problem Noted Date Diagnosed Date Essential hypertension 08/04/2021 Asthma 06/11/2020 Chronic kidney disease 06/11/2020 Cyst 06/11/2020 Cyst of kidney 06/11/2020 Dysmenorrhea 06/11/2020 Gastroesophageal reflux disease 06/11/2020 Hypercholesterolemia 06/11/2020 Benign essential hypertension 06/11/2020 Hypertensive disorder 06/11/2020 Menorrhagia 06/11/2020 Microalbuminuria 06/11/2020 Proteinuria 06/11/2020 Uterine leiomyoma 06/11/2020 Family History Medical History Relation Comments Heart disease Father Relation Status Comments Father Unknown Mother Unknown Social History Tobacco Use Types Packs/Day Years Used Date Smoking Tobacco: Never Smokeless Tobacco: Never Tobacco Cessation:Counseling Given: Not Answered Alcohol Use Standard Drinks/Week Comments No 0 (1 standard drink = 0.6 oz pur e alcohol) Comments Unknown Sex and Gender Information Value Date Recorded Sex Assigned at Not on file Legal Sex Female 4:53 PM EST Gender Identity Not on file Sexual Orientation Not on file Last Filed Vital Signs Vital Sign Reading Time Taken Comments Blood Pressure 148/80 04/18/2023 1:53 PM EST Pulse 77 04/18/2023 1:53 PM EST Temperature - - Respiratory Rate - - Oxygen Saturation 98% 04/18/2023 1:53 PM EST Inhaled Oxygen Concentration - - Weight 77.6 kg (171 lb) 04/18/2023 1:53 PM EST Height 152.4 cm (5') 07/11/2018 12:00 PM EDT Body Mass Index 33.4 07/11/2018 12:00 PM EDT Plan of Treatment Upcoming Encounters Date Type Department Care Team (Late st Contact Info) Description 05/21/2024 3:30 PM EDT Office Visit [facility] [address] [address] [place] [phone] Tesfaye Stevenson MD [address] [facility] [address] [place] [address] Health Maintenance Due Date Last Done Comments Breast Cancer Screening 1965 Pneumococcal Vaccine: Pediat rics (0 to 5 Years) and At-Risk Patients (6 to 64 Years) (1 of 2 - PCV) 1970 Hepatitis B Vaccine (1 of 3 - 19+ 3-dose series) 10/31 Colorectal Cancer Screening: Annual FOBT 2013 Colorectal Cancer Screening: Colonoscopy 2013 Colorectal Cancer Screening: Sigmoidoscopy 2013 Influenza Vaccine (#1) 2023 Insurance [facility] ([id number]) [facility] ([id number]) Care Teams Boy'S Adviser Relationship Specialty Start Date End Date Sherley Best MD [facility] [address] PCP - General 03/17/20
[2024-04-30 10:58] LABS: Appearance Urine Turbid; Color Urine Yellow; Glucose Urine UA Negative (Negative); Leukocyte Esterase Urine Negative (Negative); Nitrite Urine Negative (Negative); PH 5.5 (5.0-9.0); Specific Gravity - Urine >= 1.030 (1.005-1.025); UMIC TRIGGER UA YES; Urine Blood Trace (Negative); Urine Ketones Trace mg/dL (Negative); Urine Protein Trace mg/dL (Neg-Trace)
[2024-04-30 11:02] LABS: Bacteria Urine 2+ (None Seen); Hyaline Casts Urine 0-2 /LPF (0-2); RBC Urine 0-2 /HPF (0-2); WBC Urine 0-5 /HPF (0-5)
[2024-04-30 11:10] LABS: Anion Gap 11 (12-20); Blood Urea Nitrogen 14 mg/dL (9-16); Calcium 9.3 mg/dL (8.4-10.2); Carbon Dioxide 29 mmol/L (22-29); Chloride 105 mmol/L (96-108); Estimated Glomerular Filt Rate > 60; Potassium 3.3 mmol/L (3.3-5.1); Sodium 142 mmol/L (135-145)
[2024-04-30 12:29] LABS: Microalbum/Creatinine Ratio Ur 5.4 ug/mg cr (<30); Protein/Creatinine Ratio, Ur 0.05 (<0.2); Total Protein Urine Random 13 mg/dL (<12)
== END 2024-04-30 08:19 | disposition home or self-care (01) ==
LOC: HO.10HDL 08:18
PROVIDERS: Visit Provider Internal Medicine Nephrology
DX: I10 Essential (primary) hypertension (principal)
CPT/HCPCS: 36415; 80051; 81001; 82043; 82310; 82565; 82570; 84156; 84520

== ENCOUNTER 2024-05-07 10:03 | Outpatient (REF) | payer OTHER, SELFPAY ==
--- NOTE | ~2024-05-07 | US_ITS ---
CLINICAL HISTORY: N20.0 - Calculus of kidney US Renal Comparison: US/SR - US RENAL BI - 05/16/23 10:21 EDT Findings: Right kidney normal size and echotexture, 9.8 cm length. Left kidney normal size and echotexture, 11.2 cm length. No collecting system dilatation of either kidney. Normal color Doppler. IMPRESSION: 1. Normal kidneys. This document has been electronically signed by: Angy Brice MD on 05/08/2024 08:50:26
--- OUTSIDE RECORDS SUMMARY | 2024-05-07 11:26 | XMS_ITS | Encounter Summary ---
Author Organization [facility] Address [address] [address] Phone Care Team Providers Care Chiropractor Sole Practitioner Name Role Phone Sherley Best MD Primary Care Provider Encounter Details Date Type Department Care Team (Late Contact Info) Description 04/30/2024 Orders Only [facility] [address] [place] [phone] Tesfaye Stevenson MD [facility] [phone] Social History Tobacco Use Types Packs/Day Years Used Date Smoking Tobacco: Never Smokeless Tobacco: Never Alcohol Use Standard Drinks/Week Comments No 0 (1 standard drink = 0.6 oz pur e alcohol) Comments Unknown Sex and Gender Information Value Date Recorded Sex Assigned at Not on file Legal Sex Female 4:53 PM EST Gender Identity Not on file Sexual Orientation Not on file documented as of this encounter Plan of Treatment Upcoming Encounters Date Type Department Care Team (Late st Contact Info) Description 05/21/2024 3:30 PM EDT Office Visit [facility] [address] [place] [address] Tesfaye Stevenson MD [facility] [address] [phone] documented as of this encounter Procedures Procedure Name Priority Date/Time Associated Diagnosis Comments PROTEIN / CREATININE RATIO, URINE Routine 04/30/2024 10:46 AM EST ALBUMIN, URINE, RANDOM Routine 04/30/2024 10:46 AM EST URINALYSIS WITH MICROSCOPIC Routine 04/30/2024 10:46 AM EST CREATININE, BLOOD Routine 04/30/2024 10: 31 AM EST BUN Routine 04/30/2024 10:31 AM EST CALCIUM Routine 04/30/2024 10:31 AM EST ELECTROLYTE PANEL Routine 04/30/2024 10: 31 AM EST documented in this encounter Results * (ABNORMAL) Protein, Total, Random Urine w/Creatinine (Protein/Creat Ratio) (04/30/2024 10:46 AM EST) Protein Urine Random 13(H) <12 mg/dL See order comments Protein/Creatin ine Ratio, Urine 0.05 <0.2 See order comments Comment: The spot urine protein:creatinine ratio may increase to 0.3 during normal . 04/30/2024 10:4 6 AM EST 04/30/2024 10:46 AM EST us Tesfaye Stevenson MD LAB URINE ORDERABLES Final Re sult [place] See order comments [place] [address] * Albumin, urine, random (04/30/2024 10:46 AM EST) Creatinine, Urine 277.51 mg/dL Se e order comments Urine Microalbumin 15.0 mg/L See order comments Microalbumin/Crea tinine Ratio 5.4 <30 ug/mg cr See order comments Comment: ?Albumin/Creatinine Ratio Reference Ranges: ?Normal: < 30 ug/mg creatinine ?Microalbuminuria: ??30 - 300 ug/mg creatinine Clinical Albuminuria: ??> 300 ug/mg creatinine 04/30/2024 10:4 6 AM EST 04/30/2024 10:46 AM EST Tesfaye Stevenson MD LAB URINE ORDERABLES Final Re sult Performing Organization Address [facility]/ZIP Co de Phone Number [place] See order comments [place] [address] * (ABNORMAL) Urinalysis with microscopic (04/30/2024 10:46 AM EST) Color Urine Yellow See orde r comments Appearance Urine Turbid See order comments pH Urine 5.5 5.0 - 9.0 See order comments Glucose Urine Negative Negative mg/dL See order comments Blood, Urine Trace(A) Negative See ord er comments Specific [place] Urine >=1.030(H) 1.005 - 1.025 See order comments Protein Urine Trace Neg-Trace mg/dL See order comments Ketones, Urine Trace Negative mg/dL See order comments Nitrite, Urine Negative Negative See o rder comments Leukocyte Esterase Urine Negative Negative See order comments RBC, Urine 0-2 0 - 2 /HPF See orde r comments WBC 0-5 0 - 5 /HPF See order comments Squamous Epithelial, Urine 11-20 0 - 2 /HPF See order comments Bacteria, Urine 2+ None Seen See order comments Hyaline Casts, Urine 0-2 0 - 2 /LPF See order comments 04/30/2024 10:4 6 AM EST 04/30/2024 10:46 AM EST Tesfaye Stevenson MD LAB URINE ORDERABLES Final Re sult Performing Organization Address [facility] Co de Phone Number [place] See order comments [place] [address] * Calcium (04/30/2024 10:31 AM EST) Calcium 9.3 8.4 - 10.2 mg/dL See order comments 04/30/2024 10:3 1 AM EST 04/30/2024 10:31 AM EST Tesfaye Stevenson MD LAB BLOOD ORDERABLES Final Re sult Performing Organization Address City/[facility]/ZIP Co de Phone Number [place] See order comments [place] [address] * Creatinine (04/30/2024 10:31 AM EST) Creatinine Serum 0.72 0.5 - 1.4 mg/dL See order comments eGFR >60 See order comments Comment: Chronic Kidney Disease: ??Estimated GFR < 60 mL/min/1.73m2 Severe Kidney Disease: ??Estimated GFR < 15 mL/min/1.73m2 04/30/2024 10:3 1 AM EST 04/30/2024 10:31 AM EST us Tesfaye Stevenson MD LAB BLOOD ORDERABLES Final Re sult Performing Organization Address [facility] de Phone Number [place] See order comments [place] [address] * BUN (04/30/2024 10:31 AM EST) BUN 14 9 - 16 mg/dL See order comments 04/30/2024 10:3 1 AM EST 04/30/2024 10:31 AM EST us Tesfaye Stevenson MD LAB BLOOD ORDERABLES Final Re sult Performing Organization Address [facility] de Phone Number [facility] See order comments [place] [address] * (ABNORMAL) Electrolyte panel (04/30/2024 10:31 AM EST) Sodium 142 135 - 145 mmol/L See order comments Potassium 3.3 3.3 - 5.1 mmol/L See order comments Chloride 105 96 - 108 mmol/L See order comments Bicarbonate (CO2) 29 22 - 29 mmol/L See order comments Anion Gap 11(L) 12 - 20 See order comments 04/30/2024 10:3 1 AM EST 04/30/2024 10:31 AM EST us Tesfaye Stevenson MD LAB BLOOD ORDERABLES Final Re sult Performing Organization Address [facility] de Phone Number [facility] See order comments [place] [address] documented in this encounter Visit Diagnoses Not on filedocumented in this encounter Care Teams Chiropractor Sole Practitioner Relationship Specialty Start Date End Date Sherley Best MD [facility] PCP - General 03/17/20 documented as of this encounter
--- OUTSIDE RECORDS SUMMARY | 2024-05-07 11:26 | XMS_ITS | Clinical Summary ---
Author Organization [facility] Address [address] [place] [address] Phone Care Team Providers Care Rebeamer Name Role Phone Sherley Best MD Primary [...] Microalbuminuria 06/11/2020 Proteinuria 06/11/2020 Uterine leiomyoma 06/11/2020 Encounters Date Type Department Care Team Description 04/30/2024 Orders Only [facility] [address] [place] [phone] Tesfaye Stevenson MD from Last 3 Months Family History Medical History Relation Comments Heart [...] Office Visit [facility] [address] [place] [address] Tesfaye Stevenson MD [address] [phone] Health Maintenance Due Date Last Done Comments Breast Cancer Screening 1965 Pneumococcal Vaccine: Pediat rics (0 to 5 Years) and At-Risk Patients (6 to 64 Years) (1 of 2 - PCV) 1970 Hepatitis B Vaccine (1 of 3 - 19+ 3-dose series) 10/31 Colorectal Cancer Screening: Annual FOBT 2013 Colorectal Cancer Screening: Colonoscopy 2013 Colorectal Cancer Screening: Sigmoidoscopy 2013 Influenza Vaccine (#1) 2023 Procedures Procedure Name Priority Date/Time Associated Diagnosis Comments PROTEIN / CREATININE RATIO, URINE Routine 04/30/2024 10:46 AM EST ALBUMIN, URINE, RANDOM Routine 04/30/2024 10:46 AM EST URINALYSIS WITH MICROSCOPIC Routine 04/30/2024 10:46 AM EST CALCIUM Routine 04/30/2024 10:31 AM EST CREATININE, BLOOD Routine 04/30/2024 10: 31 AM EST BUN Routine 04/30/2024 10:31 AM EST ELECTROLYTE PANEL Routine 04/30/2024 10: 31 AM EST from Last 3 Months Results * (ABNORMAL) Protein, Total, Random Urine [...] ORDERABLES Final Re sult Performing Organization Address [facility] [[email or web address]] Co de Phone Number [place] See order comments [place] [address] * Albumin, urine, random (04/30/2024 10:46 AM [...] Tesfaye Stevenson MD LAB URINE ORDERABLES Final [facility] Performing Organization Address [facility] de Phone Number [place] See order comments [place] [address] * (ABNORMAL) Urinalysis with microscopic (04/30/2024 10:46 AM EST) Color Urine Yellow See orde r comments Appearance Urine Turbid See order comments pH Urine 5.5 5.0 - 9.0 See order comments Glucose Urine Negative Negative mg/dL See order comments Blood, Urine Trace(A) Negative See ord er comments Specific [place] Urine >=1.030(H) 1.005 - 1.025 See order [...] ORDERABLES Final Re sult Performing Organization Address [facility] de Phone Number [place] See order comments [place] [address] * Creatinine (04/30/2024 10:31 AM EST) Creatinine Serum 0.72 0.5 - 1.4 mg/dL See order comments eGFR >60 See order comments Comment: Chronic Kidney Disease: ??Estimated GFR < 60 mL/min/1.73m2 Severe Kidney Disease: ??Estimated GFR < 15 mL/min/1.73m2 04/30/2024 10:3 1 AM EST 04/30/2024 10:31 AM EST us Tesfaye Stevenson MD LAB BLOOD ORDERABLES Final Re sult Performing Organization Address [facility] Phone Number [place] See order comments [place] [address] * BUN (04/30/2024 10:31 AM EST) BUN 14 9 - 16 mg/dL See order comments 04/30/2024 10:3 1 AM EST 04/30/2024 10:31 AM EST us Tesfaye Stevenson MD LAB BLOOD ORDERABLES Final Re sult Performing Organization Address [facility] Phone Number [place] See order comments [place] [address] * Calcium (04/30/2024 10:31 AM EST) Calcium 9.3 8.4 - 10.2 mg/dL See order comments 04/30/2024 10:3 1 AM EST 04/30/2024 10:31 AM EST us Tesfaye Stevenson MD LAB BLOOD ORDERABLES Final Re sult Performing Organization Address [facility] de Phone Number [place] See order comments [place] [address] * (ABNORMAL) Electrolyte panel (04/30/2024 10:31 AM [...] MD LAB BLOOD ORDERABLES Final Re sult [place] See order comments [place] [address] from Last 3 Months Insurance [facility] ([id number]) [facility] ([id number]) Care Teams Rebeamer Relationship Specialty Start Date End Date Sherley Best MD [address] [facility] [address] [place] PCP - General 03/17/20
== END 2024-05-07 10:04 | disposition home or self-care (01) ==
LOC: HO.US 10:03
PROVIDERS: PCP Internal Medicine; Visit Provider Nurse Practitioner Family
DX: N20.0 Calculus of kidney (principal)
CPT/HCPCS: 76775

== ENCOUNTER → 2024-05-07 10:05 | Outpatient (BNV) | payer OTHER, SELFPAY | PROVIDERS: PCP Internal Medicine; Visit Provider Radiology Diagnostic Radiology | DX: N20.0 Calculus of kidney (principal) | CPT/HCPCS: 76775 ==

== ENCOUNTER 2024-05-21 10:11 | Outpatient (AMB) | payer OTHER, SELFPAY ==
--- NOTE | 2024-05-21 11:01 | MHC.OFFVIS ---
Intake Visit Reasons: 1y/US(set) Intake Note: Patient presents today for follow up: renal cyst and kidney stone, renal cyst, and ultrasound results Urology Medications: Vitamin B6 Blood Thinner: none Agriculture Internship Required: Yes Agriculture Internship Name: Carlos [id number] Accompanied by: Self / Same As Patient Allergies No Known Allergies [No Known Allergies*] Allergy (Verified 05/21/24 11:17) Medication List - Last Reconciled 05/21/24 by ALVERTO Da Silva acetaminophen ER (Tylenol 8 Hour) 650 mg PO Q8H PRN albuterol sulfate 90 mcg/actuation (Ventolin HFA) 2 puffs inhalation Q4-6H PRN amlodipine 5 mg PO DAILY atorvastatin 40 mg PO DAILY doxazosin 4 mg PO BEDTIME fluticasone propionate 50 mcg/actuation (Children's Flonase Allergy Relief) 2 sprays intranasal DAILY 30 days hydrocortisone 2.5% topical ibuprofen 600 mg PO TID loratadine 10 mg PO DAILY losartan 25 mg PO DAILY menthol-zinc oxide 0.44-20.6 % (Calmoseptine) 1 appl topical TID PRN metoprolol succinate ER 200 mg PO DAILY montelukast 10 mg PO DAILY pyridoxine (vitamin B6) 100 mg PO DAILY 90 days valsartan-hydrochlorothiazide 320-25 mg 1 tab PO DAILY HPI Comments Details: Stephany is a 58-year-old Chinese-speaking female patient of Dr. Best. She has a past medical history of asthma, allergic rhinitis, hemorrhoids, nephrolithiasis, hypertension, and renal cysts. She presents to the office today for follow-up of her nephrolithiasis and renal cyst. In discussion with the patient today she reports noting bladder pressure and discomfort over the last 2 weeks. She discusses she was going to follow-up with her PCP regarding this issue at her next follow-up in June. However I discussed follow-up with urology given scope of practice. Patient with a history of nephrolithiasis and has had recent renal imaging. These results were reviewed with the patient today. 05/29 bilateral kidneys are normal in size and echotexture. Normal kidneys. No hydronephrosis or nephrolithiasis noted bilaterally. When asked she reports compliance with vitamin B6 and increased hydration daily. In office urinalysis results reviewed with the patient today negative leukocytes negative nitrates 2+ microscopic hematuria. We discussed potential causes of microscopic hematuria as well as bladder pressure. She denies any previous history of nicotine dependence and or workplace chemical exposure. We discussed obtaining bladder ultrasound for further assessment evaluation. She denies urinary urgency, urinary frequency, incontinence, nocturia, visible/gross hematuria, foul smelling urine, changes to urinary stream, fever, and or chills. She otherwise offers no other issues or concerns at this time. [facility] Medical History Asthma Allergic rhinitis Hemorrhoids with complication Renal calculi HTN (hypertension) Renal cyst Surgical History Hx of tubal ligation Family History Mother HTN (hypertension) Daughter Multiple sclerosis Social History Household Members: None Housing: Apartment Alcohol intake: never Patient Tobacco Use Status: Never used Tobacco service: No Current occupational status: disabled Review of Systems Const Reports no additional complaints Eyes Reports no additional complaints ENT Reports no additional complaints Card Reports no additional complaints Resp Reports as per HPI GI Reports as per HPI Reports as per HPI Musc Reports no additional complaints Neuro Reports no additional complaints Psych Reports no additional complaints Endo Reports no additional complaints Kurt/Lymph Reports no additional complaints Aller/Immun Reports no additional complaints Physical Exam Const General: cooperative, healthy appearing, comfortable, no acute distress, well developed, alert and awake Orientation/consciousness: patient oriented x3 Limitations: no limitations HEENT Head: Yes normal to inspection, Yes normocephalic and Yes atraumatic Ears: hearing grossly normal bilaterally Eyes General: appearance normal, both eyes and all related structures Neck Neck: Yes normal visual inspection and Yes trachea midline Chest Chest palpation & inspection: normal inspection of the chest Resp Effort & Inspection: normal respiratory effort and able to speak in complete sentences Cardio Rate: regular rate GI Inspection: Yes normal to inspection General: Yes no CVA tenderness Back/Spine/Pelvis Back: no CVA tenderness Skin General skin exam: no rashes or lesions noted Neuro General: patient oriented x3 Extrem General: Yes normal to inspection Psych Appearance: grossly normal and well kempt Mental Status: mental status grossly normal Speech and movement: Normal speech and movement present and Clear speech present Affect: normal affect Attitude: cooperative Thought process: Normal thought process present Thought content: Normal thought content present Insight: Fair insight present (Psych) Judgement: Fair judgement present (Psych) Results AMB Urinalysis, Automated UA Leukoctes 0 Rigo/uL Last Edit by Mallorie Petit on 05/21/24 11:13 UA Nitrite Last Edit by [employer] Petit on 05/21/24 11:13 UA Urobilinogen 0.2 mg/dL Last Edit by [employer] on 05/21/24 11:13 UA Protein 15 mg/dL Last Edit by [employer] on 05/21/24 11:13 UA pH 6.0 Last Edit by [employer] on 05/21/24 11:13 UA Blood 80 Herb/uL Last Edit by [employer] on 05/21/24 11:13 UA Specific [place] 1.020 Last Edit by [employer] on 05/21/24 11:13 UA Ketone Negative Last Edit by [employer] on 05/21/24 11:13 UA Bilirubin 1 mg/dL Last Edit by [employer] on 05/21/24 11:13 UA Glucose 0 mg/dL Last Edit by [employer] on 05/21/24 11:13 Results Reviewed Results Reviewed: Laboratory Last Values Urine pH (Auto) 6.0 05/21/24 11:11 Specific [place] (Auto) 1.020 05/21/24 11:11 Urine Protein (Auto) 15 mg/dL 05/21/24 11:11 Glucose (UA)(Auto) 0 mg/dL 05/21/24 11:11 Urine Ketones (Auto) Negative 05/21/24 11:11 Urine Blood (Auto) 80 Herb/uL 05/21/24 11:11 Urine Bilirubin (Auto) 1 mg/dL 05/21/24 11:11 Urine Urobilinogen (Auto) 0.2 mg/dL 05/21/24 11:11 Leukocyte Esterase (Auto) 0 Rigo/uL 05/21/24 11:11 Date of Service: 05/07/24 US Renal Comparison: US/SR - US RENAL BI - 05/16/23 10:21 EDT Findings: Right kidney normal size and echotexture, 9.8 cm length. Left kidney normal size and echotexture, 11.2 cm length. No collecting system dilatation of either kidney. Normal color Doppler. IMPRESSION: 1. Normal kidneys. Assessment & Plan Assessment & Plan (1) Sensation of pressure in bladder area: Code(s): R39.89 - Other symptoms and signs involving the genitourinary system Category: Medical (2) Microscopic hematuria: Code(s): R31.29 - Other microscopic hematuria Category: Medical (3) Renal calculi: Code(s): N20.0 - Calculus of kidney Category: Medical (4) Renal cyst: Code(s): N28.1 - Cyst of kidney, acquired Category: Medical Plan In office urinalysis results reviewed the patient today; as noted above; will send for urine culture as well as urine cytology. We discussed obtaining bladder ultrasound for further assessment evaluation. We discussed at length potential causes of renal cysts, nephrolithiasis, and bladder pressure. We discussed potential near future in office cystoscopy for further assessment evaluation. Start Estrace cream as discussed and prescribed. Continue vitamin B6 as discussed and prescribed; will decrease to 50 mg daily. Educated, encouraged, and stressed the importance of continuing increased hydration relation to nephrolithiasis as well as lower urinary tract symptoms. We discussed bladder triggers/irritants. Follow-up in 3 months with imaging and PVR; or sooner with any issues, concerns, and or questions. Orders: Orders AMB Urinalysis Automated Today Z13.9 - Encounter for screening, unspecified Urine Culture Today R10.2 - Pelvic and perineal pain Urine Cytology Today R31.29 - Other microscopic hematuria US bladder Today R39.89 - Other symptoms and signs involving the genitourinary system Medications: New estradiol 0.01%(0.1mg/gram) (Estrace) Apply a pea-sized amount to urethra daily x1 month; and then 3 times per week thereafter 1 g vaginal 3XW 90 days 42.5 grams 1RF Patient Instructions: The patient had an opportunity to ask questions regarding the treatment plan. All questions were answered. Physical exam, labs, and imaging were discussed and reviewed in detail. As well as risks, benefits, and discussion of treatment choices. No major barriers to understanding were identified. The patient expressed understanding and agreement with the above treatment plan. The patient was made aware they should contact our office by phone for worsening of their current condition, the appearance of new symptoms, or with any questions or concerns. Compliance is encouraged with any medications and follow up testing that is ordered. It is a privilege to be allowed the opportunity to participate in? your urological care.? Again, if you have any questions or concerns If you have any questions or concerns please do not hesitate to contact me. The office is [phone]. This note is constructed using voice recognition software. While every effort has been made to ensure accuracy tire wrapper errors may have been included. Yours sincerely, ALVERTO Da Silva Coding Level of Care Code Est Pt Level 4 (55727) Diagnoses Sensation of pressure in bladder area R39.89 Microscopic hematuria R31.29 Renal calculi N20.0 Renal cyst N28.1
--- OUTSIDE RECORDS SUMMARY | 2024-05-21 11:22 | XMS_ITS | Encounter Summary ---
Author Organization [facility] Address [address] [address] Phone Care Team Providers Care Recapper Name Role Phone Sherley Best MD Primary Care Provider Encounter Details Date Type Department Care Team (Late Contact Info) Description 04/30/2024 Orders Only [facility] [address] [place] [phone] Tesfaye Stevenson MD [facility] [address] [address] Social History Tobacco Use Types [...] Office Visit [facility] [address] [place] [address] Tesfaye Stevenson MD [facility] [address] [address] documented as of this encounter [...] MD LAB URINE ORDERABLES Final Re sult [place] See order comments [place] [address] * Albumin, urine, random (04/30/2024 10:46 AM [...] ORDERABLES Final Re sult Performing Organization Address [facility]/ZIP Co de Phone Number H[place]JE[place]NA See order comments [place] [address] * (ABNORMAL) Urinalysis with microscopic (04/30/2024 10:46 AM EST) Color Urine Yellow See orde r comments Appearance Urine Turbid See order comments pH Urine 5.5 5.0 - 9.0 See order comments Glucose Urine Negative Negative mg/dL See order comments Blood, Urine Trace(A) Negative See ord er comments Specific [place] Urine >=1.030(H) 1.005 - 1.025 See order [...] ORDERABLES Final Re sult Performing Organization Address [facility] Co de Phone Number [place] See order comments [place] [address] * Calcium (04/30/2024 10:31 AM EST) Calcium 9.3 8.4 - 10.2 mg/dL See order comments 04/30/2024 10:3 1 AM EST 04/30/2024 10:31 AM EST Tesfaye Stevenson MD LAB BLOOD ORDERABLES Final Re sult Performing Organization Address City/[facility]/ZIP Co de Phone Number [place]JE[place]NA See order comments [place] [address] * Creatinine (04/30/2024 10:31 AM EST) Creatinine Serum 0.72 0.5 - 1.4 mg/dL See order comments eGFR >60 See order comments Comment: Chronic Kidney Disease: ??Estimated GFR < 60 mL/min/1.73m2 Severe Kidney Disease: ??Estimated GFR < 15 mL/min/1.73m2 04/30/2024 10:3 1 AM EST 04/30/2024 10:31 AM EST us Tesfaye Stevenson MD LAB BLOOD ORDERABLES Final Re sult Performing Organization Address [facility] de Phone Number [place] See order comments [place] [address] * BUN (04/30/2024 10:31 AM EST) BUN 14 9 - 16 mg/dL See order comments 04/30/2024 10:3 1 AM EST 04/30/2024 10:31 AM EST us Tesfaye Stevenson MD LAB BLOOD ORDERABLES Final Re sult Performing Organization Address [facility] de Phone Number [facility] See order comments [place] [address] * (ABNORMAL) Electrolyte panel (04/30/2024 10:31 AM [...] ORDERABLES Final Re sult Performing Organization Address [facility] de Phone Number [facility] See order comments [place] [address] documented in this encounter Visit Diagnoses Not on filedocumented in this encounter Care Teams Recapper Relationship Specialty Start Date End Date Sherley Best MD [facility] [address] PCP - General 03/17/20 documented as of this encounter
--- OUTSIDE RECORDS SUMMARY | 2024-05-21 11:22 | XMS_ITS | Clinical Summary ---
Author Organization [facility] Address [address] [place] [address] Phone Care Team Providers Care Community Service Technician Name Role Phone Sherley Best MD Primary [...] Orders Only [facility] [address] [place] [phone] Tesfaye Stevenson MD from Last 3 [...] Office Visit [facility] [address] [place] [address] Tesfaye Stevenson MD [address] [address] Health Maintenance Due Date Last Done Comments [...] ORDERABLES Final Re sult Performing Organization Address [facility] Co de Phone Number [place] See order comments [place] [address] * Albumin, urine, random (04/30/2024 10:46 AM [...] Tesfaye Stevenson MD LAB URINE ORDERABLES Final [facility] Performing Organization Address [facility] de Phone Number [place] See order comments [place] [address] * (ABNORMAL) Urinalysis with microscopic (04/30/2024 10:46 AM EST) Color Urine Yellow See orde r comments Appearance Urine Turbid See order comments pH Urine 5.5 5.0 - 9.0 See order comments Glucose Urine Negative Negative mg/dL See order comments Blood, Urine Trace(A) Negative See ord er comments Specific [place] Urine >=1.030(H) 1.005 - 1.025 See order [...] ORDERABLES Final Re sult Performing Organization Address [facility] de Phone Number [place] See order comments [place] [address] * Creatinine (04/30/2024 10:31 AM EST) Creatinine Serum 0.72 0.5 - 1.4 mg/dL See order comments eGFR >60 See order comments Comment: Chronic Kidney Disease: ??Estimated GFR < 60 mL/min/1.73m2 Severe Kidney Disease: ??Estimated GFR < 15 mL/min/1.73m2 04/30/2024 10:3 1 AM EST 04/30/2024 10:31 AM EST us Tesfaye Stevenson MD LAB BLOOD ORDERABLES Final Re sult Performing Organization Address [facility] Phone Number [place] See order comments [place] [address] * BUN (04/30/2024 10:31 AM EST) BUN 14 9 - 16 mg/dL See order comments 04/30/2024 10:3 1 AM EST 04/30/2024 10:31 AM EST us Tesfaye Stevenson MD LAB BLOOD ORDERABLES Final Re sult Performing Organization Address [facility] Phone Number [place] See order comments [place] [address] * Calcium (04/30/2024 10:31 AM EST) Calcium 9.3 8.4 - 10.2 mg/dL See order comments 04/30/2024 10:3 1 AM EST 04/30/2024 10:31 AM EST us Tesfaye Stevenson MD LAB BLOOD ORDERABLES Final Re sult Performing Organization Address [facility] de Phone Number [place] See order comments [place] [address] * (ABNORMAL) Electrolyte panel (04/30/2024 10:31 AM [...] order comments [place] [address] from Last 3 Months Insurance [facility] ([id number]) [facility] ([id number]) Care Teams Community Service Technician Relationship Specialty Start Date End Date Sherley Best MD [address] [facility] [address] [place] PCP - General 03/17/20
== END 2024-05-21 11:17 | disposition home or self-care (01) ==
LOC: HO.HUSH 10:11
PROVIDERS: PCP Internal Medicine; Visit Provider Nurse Practitioner Family
DX: R39.89 Other symptoms and signs involving the genitourinary system (principal); R31.29 Other microscopic hematuria; N20.0 Calculus of kidney; N28.1 Cyst of kidney, acquired; Z13.9 Encounter for screening, unspecified
CPT/HCPCS: 99214

== ENCOUNTER 2024-05-21 10:11 | Outpatient (REF) | payer OTHER, SELFPAY ==
[2024-05-21 18:06] LABS: Urine Cytology See Pathology rpt
== END 2024-05-21 10:12 | disposition home or self-care (01) ==
LOC: HO.LNP 10:11
PROVIDERS: PCP Internal Medicine; Visit Provider Nurse Practitioner Family
DX: R10.2 Pelvic and perineal pain (principal); R31.29 Other microscopic hematuria; N28.1 Cyst of kidney, acquired; N20.0 Calculus of kidney; R39.89 Other symptoms and signs involving the genitourinary system; Z13.9 Encounter for screening, unspecified
CPT/HCPCS: 81003; 87086; 88112; 99212

== ENCOUNTER 2024-07-09 12:47 | Outpatient (REF) | payer OTHER, SELFPAY ==
--- OUTSIDE RECORDS SUMMARY | 2024-07-09 14:12 | XMS_ITS | Clinical Summary ---
Author Organization [facility] Address [address] [place] [address] Phone Care Team Providers Care Janitorial Manager Name Role Phone Sherley Best MD Primary [...] day Do not crush or chew. Active Hydrocortisone, Perianal, 2.5 % cream 08/25/2022 Active atorvastatin (LIPITOR) 40 MG tablet Take 40 mg by mouth 1 (one) time each day Active amLODIPine (NORVASC) 5 MG tablet Take 2 tablets (10 mg total) by mouth 1 (one) time each day 60 tablet 05/28/2024 Active Active Problems Problem Noted Date Diagnosed Date Essential hypertension 08/04/2021 Asthma 06/11/2020 Chronic kidney disease 06/11/2020 Cyst 06/11/2020 Cyst of kidney 06/11/2020 Dysmenorrhea 06/11/2020 Gastroesophageal reflux disease 06/11/2020 Hypercholesterolemia 06/11/2020 Benign essential hypertension 06/11/2020 Hypertensive disorder 06/11/2020 Menorrhagia 06/11/2020 Microalbuminuria 06/11/2020 Proteinuria 06/11/2020 Uterine leiomyoma 06/11/2020 Encounters Date Type Department Care Team Description 05/28/2024 Refill [facility] [address] [place] [address] Vanna Rowe MA 05/21/2024 3:30 PM EDT Office Visit [facility] [address] [place] [phone] Tesfaye Stevenson MD Essential hypertension (Primary Dx) 04/30/2024 Orders Only [facility] [address] [place] [address] Tesfaye Stevenson MD from Last 3 Months [...] Sign Reading Time Taken Comments Blood Pressure 138/94 05/21/2024 3:33 PM EDT Pulse 78 05/21/2024 3:33 PM EDT Temperature - - Respiratory Rate - - Oxygen Saturation 99% 05/21/2024 3:33 PM EDT Inhaled Oxygen Concentration - - Weight 76.1 kg (167 lb 12.8 oz) 05/21/2024 3:33 PM EDT Height 152.4 cm (5') 07/11/2018 12:00 PM EDT Body Mass Index 32.77 07/11/2018 12:00 PM EDT Plan of Treatment Upcoming Encounters Date Type Department Care Team (Late st Contact Info) Description 12/03/2024 3:30 PM EDT Office Visit [facility] [address] [place] [address] Tesfaye Stevenson MD [address] [facility] [address] [place] [address] Health Maintenance Due Date Last Done Comments Breast Cancer Screening 1965 Hepatitis B Vaccine (1 of 3 - 19+ 3-dose series) 10/31 Pneumococcal Vaccine: 50+ Years (1 of 2 - PCV) 984 Colorectal Cancer Screening: Annual FOBT 2013 Colorectal Cancer Screening: Colonoscopy 2013 Colorectal Cancer Screening: Sigmoidoscopy 2013 Influenza Vaccine (Season Ended) 2024 Procedures Procedure Name Priority Date/Time Associated Diagnosis [...] Stevenson MD LAB URINE ORDERABLES Final Re [facility] Performing Organization Address [facility] de Phone Number [facility] See order comments [place] [address] * Albumin, urine, random (04/30/2024 10:46 AM [...] Tesfaye Stevenson MD LAB URINE ORDERABLES Final [facility] Performing Organization Address [facility] de Phone Number [place] See order comments [place] [address] * (ABNORMAL) Urinalysis with microscopic (04/30/2024 10:46 AM EST) Color Urine Yellow See orde r comments Appearance Urine Turbid See order comments pH Urine 5.5 5.0 - 9.0 See order comments Glucose Urine Negative Negative mg/dL See order comments Blood, Urine Trace(A) Negative See ord er comments Specific [place] Urine >=1.030(H) 1.005 - 1.025 See order [...] ORDERABLES Final Re sult Performing Organization Address [facility] de Phone Number [place] See order comments [place] [address] * Creatinine (04/30/2024 10:31 AM EST) Creatinine Serum 0.72 0.5 - 1.4 mg/dL See order comments eGFR >60 See order comments Comment: Chronic Kidney Disease: ??Estimated GFR < 60 mL/min/1.73m2 Severe Kidney Disease: ??Estimated GFR < 15 mL/min/1.73m2 04/30/2024 10:3 1 AM EST 04/30/2024 10:31 AM EST us Tesfaye Stevenson MD LAB BLOOD ORDERABLES Final Re sult Performing Organization Address [facility] de Phone Number [place] See order comments [place] [address] * BUN (04/30/2024 10:31 AM EST) BUN 14 9 - 16 mg/dL See order comments 04/30/2024 10:3 1 AM EST 04/30/2024 10:31 AM EST us Tesfaye Stevenson MD LAB BLOOD ORDERABLES Final Re sult Performing Organization Address [place] de Phone Number [place] See order comments [place] [address] * Calcium (04/30/2024 10:31 AM EST) Calcium 9.3 8.4 - 10.2 mg/dL See order comments 04/30/2024 10:3 1 AM EST 04/30/2024 10:31 AM EST Tesfaye Stevenson MD LAB BLOOD ORDERABLES Final Re sult [place] See order comments [place] [address] * (ABNORMAL) Electrolyte panel (04/30/2024 10:31 AM [...] order comments [place] [address] from Last 3 Months Insurance [facility] ([id number]) [facility] ([id number]) [place] [phone] Care Teams Janitorial Manager Relationship Specialty Start Date End Date Sherley Best MD [address] [facility] [address] [place] PCP - General 03/17/20
== END 2024-07-09 12:48 | disposition home or self-care (01) ==
LOC: HO.MAMMO 12:47
PROVIDERS: PCP Internal Medicine; Visit Provider Internal Medicine
DX: Z12.31 Encounter for screening mammogram for malignant neoplasm of breast (principal)
CPT/HCPCS: 77063; 77067

== ENCOUNTER → 2024-07-09 13:00 | Outpatient (BNV) | payer OTHER, SELFPAY | PROVIDERS: PCP Internal Medicine; Visit Provider Internal Medicine | DX: Z12.31 Encounter for screening mammogram for malignant neoplasm of breast (principal) | CPT/HCPCS: 77063; 77067 ==

== ENCOUNTER 2024-08-20 10:27 | Outpatient (REF) | payer OTHER, SELFPAY ==
--- OUTSIDE RECORDS SUMMARY | 2024-08-20 11:41 | XMS_ITS | Clinical Summary ---
Author Organization [facility][1] Address [address] [place] [address] Phone Care Team Providers Care Assembler Faucets Name Role Phone Sherley Best MD Primary [...] 05/28/2024 Refill [facility] [address] [facility] [address] [place] [address] Vanna Rowe MA 05/21/2024 3:30 PM EDT Office Visit [facility] [address] [place] [address] Tesfaye Stevenson MD Essential hypertension (Primary Dx) from Last 3 Months Family History Medical [...] Office Visit [facility] [address] [place] [address] Tesfaye Stevenson MD [address] [facility] [address] [place] [address] Health Maintenance Due Date Last Done Comments Breast Cancer Screening 1965 Hepatitis B Vaccine (1 of 3 - 19+ 3-dose series) 10/31 Pneumococcal Vaccine: 50+ Years (1 of 2 - PCV) 984 Colorectal Cancer Screening: Annual FOBT 2013 Colorectal Cancer Screening: Colonoscopy 2013 Colorectal Cancer Screening: Sigmoidoscopy 2013 Influenza Vaccine (Season Ended) 2024 Insurance [facility] ([id number]) [place] [id number] [facility] ([id number]) Care Teams Assembler Faucets Relationship Specialty Start Date End Date Sherley Best MD [address] [facility] [address] [place] PCP - General 03/17/20
== END 2024-08-20 10:28 | disposition home or self-care (01) ==
LOC: HO.US 10:27
PROVIDERS: PCP Internal Medicine; Visit Provider Nurse Practitioner Family
DX: Z13.89 Encounter for screening for other disorder (principal)

== ENCOUNTER 2024-09-21 15:07 | Outpatient (REF) | payer OTHER, SELFPAY ==
--- NOTE | ~2024-09-21 | US_ITS ---
EXAMINATION: US BLADDER HISTORY: R39.89 - Other symptoms and signs involving the genitourinary system COMPARISON: There are no prior studies available for comparison. FINDINGS: Sonographic examination of the urinary bladder was performed before and after voiding. Before voiding, the urinary bladder measured 8.1 x 4.9 x 8.7, for an estimated volume of 180 mL. After voiding, the urinary bladder measured 2.2 x 1.2 x 2.0, for an estimated volume of 2.7 mL. No intrinsic bladder abnormality is identified. Bilateral ureteral jets are not identified. US/US bladder IMPRESSION: Unremarkable bladder ultrasound. Post void bladder residual of 2.7 mL. Electronically signed by: Adan Montaño MD 09/21/2024 03:39 PM EDT
--- OUTSIDE RECORDS SUMMARY | 2024-09-21 15:09 | XMS_ITS | Clinical Summary ---
Author Organization [facility] Address [address] [facility] [address] [address] [place] [address] Phone Care Team Providers Care Yard Pilot Name Role Phone Sherley Best MD Primary [...] Visit [facility] [address] [place] [address] Tesfaye Stevenson MD [address] [facility] [address] [place] [address] Health Maintenance Due Date Last Done Comments Breast Cancer Screening 1965 Hepatitis B Vaccine (1 of 3 - 19+ 3-dose series) 10/31 Pneumococcal Vaccine: 50+ Years (1 of 2 - PCV) 984 Colorectal Cancer Screening: Annual FOBT 2013 Colorectal Cancer Screening: Colonoscopy 2013 Colorectal Cancer Screening: Sigmoidoscopy 2013 Influenza Vaccine (#1) 2024 Insurance [facility] ([id number]) [facility] ([id number]) Care Teams Yard Pilot Relationship Specialty Start Date End Date Sherley Best MD [address] [facility] [address] [place] PCP - General 03/17/20
== END 2024-09-21 15:08 | disposition home or self-care (01) ==
LOC: HO.US 15:07
PROVIDERS: PCP Internal Medicine; Visit Provider Nurse Practitioner Family
DX: R39.89 Other symptoms and signs involving the genitourinary system (principal)
CPT/HCPCS: 76857

== ENCOUNTER → 2024-09-21 15:09 | Outpatient (BNV) | payer OTHER, SELFPAY | PROVIDERS: PCP Internal Medicine; Visit Provider Radiology Diagnostic Radiology | DX: R39.89 Other symptoms and signs involving the genitourinary system (principal) | CPT/HCPCS: 76857 ==

== ENCOUNTER 2024-09-24 10:06 | Outpatient (AMB) | payer OTHER, SELFPAY ==
[2024-09-24 10:20] VITALS: BP 156/81; PULSE 93; O2SAT 98; BMI 29.0
--- NOTE | 2024-09-24 10:20 | A.OFFVIS_ITS ---
Vital Signs 09/24/24 10:20 Height 5 ft 4 in Weight 169 lb BMI 29.0 BP 156/81 H Blood Pressure Location Lt brachial Position Sitting Pulse 93 Pulse Source Pulse Oximeter Pulse Oximetry (%) 98 Oxygen Delivery Method Room Air Intake Visit Reasons: Asthma Intake Note: pt is here for follow up and feels good today Head Of Ethics And Compliance Required: No Allergies No Known Allergies (No Known Allergies*) Allergy (Verified 09/24/24 10:35) Medication List - Last Reconciled 09/24/24 by Eric Mota MD acetaminophen ER (Tylenol 8 Hour) 650 mg PO Q8H PRN albuterol sulfate 90 mcg/actuation (Ventolin HFA) 2 puffs inhalation Q4-6H PRN amlodipine 10 mg PO DAILY atorvastatin 40 mg PO DAILY doxazosin 4 mg PO BEDTIME estradiol 0.01%(0.1mg/gram) (Estrace) 1 g vaginal 3XW 90 days fluticasone propionate 50 mcg/actuation (Children's Flonase Allergy Relief) 2 sprays intranasal DAILY 30 days hydrocortisone 2.5% topical ibuprofen 600 mg PO TID loratadine 10 mg PO DAILY menthol-zinc oxide 0.44-20.6 % (Calmoseptine) 1 appl topical TID PRN metoprolol succinate ER 200 mg PO DAILY montelukast 10 mg PO DAILY pyridoxine (vitamin B6) 100 mg PO DAILY 90 days valsartan-hydrochlorothiazide 320-25 mg 1 tab PO DAILY Do you need a note to return to daycare/school/sports/work: No HPI HPI Asthma: Details: Stephany ledezma is 58 years old very pleasant female who comes after 6 months for follow-up. Her main problem is allergic rhinitis which flares up during any seasonal changes . And also has mild intermittent bronchial asthma for which she uses albuterol p.r.n.. She claims that with her current regimen the allergies symptoms as well as asthma has remained well controlled. Her symptoms are worse in early spring and late summer and also in the cold weather. She is nonsmoker. [facility] Medical History Asthma Allergic rhinitis Hemorrhoids with complication Renal calculi HTN (hypertension) Renal cyst Surgical History Hx of tubal ligation Family History Mother HTN (hypertension) Daughter Multiple sclerosis Social History Household Members: None Housing: Apartment Alcohol intake: never Patient Tobacco Use Status: Never used Tobacco service: No Current occupational status: disabled Review of Systems Const All systems reviewed & are unremarkable except as noted in HPI and below Eyes Reports no additional complaints ENT Reports change in voice, Reports hoarseness, Reports nasal congestion and Reports nasal discharge Card Denies chest pain, Denies irregular heart rhythm and Denies leg edema Resp Reports as per HPI GI Reports no additional complaints Reports no additional complaints Musc Reports no additional complaints Skin/Breast Reports system reviewed and no additional complaints, except as documented Neuro Reports no additional complaints Psych Reports no additional complaints Endo Reports no additional complaints Aller/Immun Reports no additional complaints Physical Exam Vital Signs: Last Vital Signs Pulse 93 09/24/24 10:20 BP 156/81 H 09/24/24 10:20 Pulse Ox 98 09/24/24 10:20 Oxygen Delivery Method Room Air 09/24/24 10:20 BMI result Body Mass Index 29.0 Const General: comfortable, no acute distress, alert and awake Orientation/consciousness: patient oriented x3 HEENT Head: Yes normal to inspection General nose exam: No nasal polyps present and No nasal discharge present Face and sinus: Yes sinuses nontender Mouth: oropharynx normal Throat: Yes posterior oropharynx normal Eyes General: appearance normal, both eyes and all related structures Neck Neck: Yes normal visual inspection, Yes no lymphadenopathy, Yes trachea midline and Yes no JVD Thyroid: Thyroid normal Chest Chest palpation & inspection: normal inspection of the chest, normal palpation of entire chest wall and no tenderness Resp Effort & Inspection: normal respiratory effort Auscultation: clear to auscultation bilaterally, no crackles and no wheezes Cardio Palpation: normal PMI Rate: regular rate Rhythm: regular rhythm Heart sounds: no gallops and no murmurs Peripheral pulses: Peripheral pulses 2+ throughout GI Palpation (GI): Soft to palpation, nontender, No hepatosplenomegaly present and no masses Auscultation: normal bowel sounds Back/Spine/Pelvis Thoracic/Lumbar Spine: thoracic and lumbar spine normal to inspection Skin General skin exam: no rashes or lesions noted Neuro General: patient oriented x3 and no focal motor deficits Cranial nerves: Yes CN's II-XII intact bilaterally Extrem General: Yes normal to inspection, Yes no clubbing, cyanosis or edema and Yes no calf tenderness Psych Speech and movement: Normal speech and movement present Assessment & Plan Assessment & Plan (1) Asthma: Comment: PATIENT HAS HAD MILD ,INTERMITTENT, BRONCHIAL ASTHMA, SPIROMETRY WAS NORMAL AND DID NOT SHOW ANY OBSTRUCTIVE AIRWAY DISORDER OR ANY RESPONSE TO BRONCHODILATOR THERAPY. Code(s): J45.909 - Unspecified asthma, uncomplicated Category: Medical Plan: CONTINUE TO USE ALBUTEROL HFA 2 PUFFS Q 4-6 HOURS BUT ONLY P.R.N. SHE DOES NOT NEED TO USE ANY CONTROLLER MED. (2) Allergic rhinitis: Comment: PATIENT HAS INTERMITTENT SYMPTOMS OF NASAL CONGESTION WITH POSTNASAL DISCHARGE. MOST LIKELY SHE HAS INTERMITTENT ALLERGIC RHINITIS. SEEMS TO BE WELL CONTROLLED WITH CURRENT REGIMEN. Code(s): J30.9 - Allergic rhinitis, unspecified Category: Medical Plan: MONTELUKAST 10 MG ONCE A DAY FLONASE-52 SPRAY IN EACH NOSTRIL DAILY LORATADINE 10 MG ONCE A DAY P.R.N. Coding Level of Care Code Est Pt Level 3 (67831) Diagnoses Asthma J45.909 Allergic rhinitis J30.9
--- OUTSIDE RECORDS SUMMARY | 2024-09-24 10:58 | XMS_ITS | Clinical Summary ---
Author Organization [facility] Address [address] [place] [address] Phone Care Team Providers Care Grout Worker Name Role Phone Sherley Best MD Primary [...] Visit [facility] [address] [place] [address] Tesfaye Stevenson MD [address] [facility] [address] [place] [address] Health Maintenance Due Date Last Done Comments Breast Cancer Screening 1965 Hepatitis B Vaccine (1 of 3 - 19+ 3-dose series) 10/31 Pneumococcal Vaccine: 50+ Years (1 of 2 - PCV) 984 Colorectal Cancer Screening: Annual FOBT 2013 Colorectal Cancer Screening: Colonoscopy 2013 Colorectal Cancer Screening: Sigmoidoscopy 2013 Influenza Vaccine (#1) 2024 Insurance [facility] ([id number]) [facility] ([id number]) Care Teams Grout Worker Relationship Specialty Start Date End Date Sherley Best MD [address] [facility] [address] [place] PCP - General 03/17/20
== END 2024-09-24 10:40 | disposition home or self-care (01) ==
LOC: HO.HPS 10:07
PROVIDERS: PCP Internal Medicine; Visit Provider Internal Medicine
DX: J45.909 Unspecified asthma, uncomplicated (principal); J30.9 Allergic rhinitis, unspecified
CPT/HCPCS: 99213

== ENCOUNTER → 2024-09-24 10:06 | Outpatient (BNVA) | payer OTHER, SELFPAY | PROVIDERS: PCP Internal Medicine; Visit Provider Internal Medicine | DX: J45.20 Mild intermittent asthma, uncomplicated (principal); J30.9 Allergic rhinitis, unspecified | CPT/HCPCS: 99212 ==

== ENCOUNTER 2024-10-10 14:25 | Outpatient (AMB) | payer OTHER, SELFPAY ==
--- NOTE | 2024-10-10 14:29 | A.OFFVIS_ITS ---
Intake Visit Reasons: 3m/PVR Intake Note: Patient is present for 3M/PVR Urology Medication:VITAMIN B6,ESTRADIOL Antibiotic Allergy:NONE Blood Thinner:NONE Todays PVR:0ML'S Tnt Line Supervisor Required: No Allergies No Known Allergies (No Known Allergies*) Allergy (Verified 10/10/24 22:39) Medication List - Last Reconciled 10/10/24 by AREN Da SilvaP- albuterol sulfate 90 mcg/actuation (Ventolin HFA) 2 puffs inhalation Q4-6H PRN amlodipine 10 mg PO DAILY atorvastatin 40 mg PO DAILY loratadine 10 mg PO DAILY metoprolol succinate ER 200 mg PO DAILY montelukast 10 mg PO DAILY pyridoxine (vitamin B6) 100 mg PO DAILY 90 days valsartan-hydrochlorothiazide 320-25 mg 1 tab PO DAILY HPI Comments Details: Stephany is a 58-year-old Scottish-speaking female patient of Dr. Best. She has a past medical history of asthma, allergic rhinitis, hemorrhoids, nephrolithiasis, hypertension, and renal cysts. She presents to the office today for follow-up of her nephrolithiasis, renal cyst and microscopic hematuria. In discussion with the patient today she reports bladder pressure she had been previously experiencing has since subsided. She currently denies any bothersome urinary issues or concerns. She reports compliance with Estrace cream as prescribed. Recent bladder ultrasound results reviewed with the patient today. 09/28 unremarkable bladder ultrasound per radiology report. Previous workup has also included a renal ultrasound 05/29 noting bilateral kidneys are normal in size and echotexture. Normal kidneys. No hydronephrosis or nephrolithiasis noted bilaterally. When asked she reports compliance with vitamin B6 and increased hydration daily. In office urinalysis results reviewed with the patient today. Previous urine cytology and urine culture results were reviewed with the patient today. Urine culture: 05/29 No growth Urine cytology: 05/29 Negative for high-grade urothelial carcinoma We discussed potential causes of microscopic hematuria as well as bladder pressure patient previously been experiencing. She denies any previous history of nicotine dependence and or workplace chemical exposure. She denies urinary urgency, urinary frequency, incontinence, nocturia, visible/gross hematuria, foul smelling urine, changes to urinary stream, fever, and or chills. She otherwise offers no other issues or concerns at this time. [facility] Medical History Asthma Allergic rhinitis Hemorrhoids with complication Renal calculi HTN (hypertension) Renal cyst Surgical History Hx of tubal ligation Family History Mother HTN (hypertension) Daughter Multiple sclerosis Social History Household Members: None Housing: Apartment Alcohol intake: never Patient Tobacco Use Status: Never used Tobacco service: No Current occupational status: disabled Review of Systems Const Reports no additional complaints Eyes Reports no additional complaints ENT Reports no additional complaints Card Reports no additional complaints Resp Reports as per HPI GI Reports as per HPI Reports as per HPI Musc Reports no additional complaints Neuro Reports no additional complaints Psych Reports no additional complaints Endo Reports no additional complaints Kurt/Lymph Reports no additional complaints Aller/Immun Reports no additional complaints Physical Exam Const General: cooperative, healthy appearing, comfortable, no acute distress, well developed, alert and awake Orientation/consciousness: patient oriented x3 Limitations: no limitations HEENT Head: Yes normal to inspection, Yes normocephalic and Yes atraumatic Ears: hearing grossly normal bilaterally Eyes General: appearance normal, both eyes and all related structures Neck Neck: Yes normal visual inspection and Yes trachea midline Chest Chest palpation & inspection: normal inspection of the chest Resp Effort & Inspection: normal respiratory effort and able to speak in complete sentences Cardio Rate: regular rate GI Inspection: Yes normal to inspection General: Yes no CVA tenderness Back/Spine/Pelvis Back: no CVA tenderness Skin General skin exam: no rashes or lesions noted Neuro General: patient oriented x3 Extrem General: Yes normal to inspection Psych Appearance: grossly normal and well kempt Mental Status: mental status grossly normal Speech and movement: Normal speech and movement present and Clear speech present Affect: normal affect Attitude: cooperative Thought process: Normal thought process present Thought content: Normal thought content present Insight: Fair insight present (Psych) Judgement: Fair judgement present (Psych) Office Procedures Post Void Residual Post Residual Void Post Void Residual (PVR): 0 13514-Worq Void Residual by ultrasound Results AMB Urinalysis, Automated UA Leukoctes 0 Rigo/uL Last Edit by KIANA Villarreal on 10/10/24 14:46 UA Nitrite Negative Last Edit by Wally Elias, [facility] on 10/10/24 14:46 UA Urobilinogen 0.2 mg/dL Last Edit by Wally Elias [facility] on 10/10/24 14:4 6 UA Protein 0 mg/dL Last Edit by Wally Elias, [facility] on 10/10/24 14:46 UA pH 6.0 Last Edit by Wally Elias, [facility] on 10/10/24 14:46 UA Blood 80 Herb/uL Last Edit by Wally Elias, [facility] on 10/10/24 14:46 UA Specific [place] 1.015 Last Edit by Wally Elias [facility] on 10/10/24 14: 46 UA Ketone Negative Last Edit by Wally Elias, [facility] on 10/10/24 14:46 UA Bilirubin 0 mg/dL Last Edit by Wally Elias [facility] on 10/10/24 14:46 UA Glucose 0 mg/dL Last Edit by Wally Elias [facility] on 10/10/24 14:46 Results Reviewed Results Reviewed: Laboratory Last Values Urine pH (Auto) 6.0 10/10/24 14:45 Specific [place] (Auto) 1.015 10/10/24 14:45 Urine Protein (Auto) 0 mg/dL 10/10/24 14:45 Glucose (UA)(Auto) 0 mg/dL 10/10/24 14:45 Urine Ketones (Auto) Negative 10/10/24 14:45 Urine Blood (Auto) 80 Herb/uL 10/10/24 14:45 Urine Nitrite (Auto) Negative 10/10/24 14:45 Urine Bilirubin (Auto) 0 mg/dL 10/10/24 14:45 Urine Urobilinogen (Auto) 0.2 mg/dL 10/10/24 14:45 Leukocyte Esterase (Auto) 0 Rigo/uL 10/10/24 14:45 Date of Service: 09/21/24 Procedure(s): US bladder FINDINGS: Sonographic examination of the urinary bladder was performed before and after voiding. Before voiding, the urinary bladder measured 8.1 x 4.9 x 8.7, for an estimated volume of 180 mL. After voiding, the urinary bladder measured 2.2 x 1.2 x 2.0, for an estimated volume of 2.7 mL. No intrinsic bladder abnormality is identified. Bilateral ureteral jets are not identified. IMPRESSION: Unremarkable bladder ultrasound. Post void bladder residual of 2.7 mL. Assessment & Plan Assessment & Plan (1) Microscopic hematuria: Code(s): R31.29 - Other microscopic hematuria Category: Medical (2) Renal cyst: Code(s): N28.1 - Cyst of kidney, acquired Category: Medical (3) Renal calculi: Code(s): N20.0 - Calculus of kidney Category: Medical (4) Sensation of pressure in bladder area: Code(s): R39.89 - Other symptoms and signs involving the genitourinary system Category: Medical Plan In office urinalysis results reviewed the patient today; as noted above. PVR 0 mL Previous urine cytology results reviewed with the patient today as well as urine culture; as noted above. Recent bladder ultrasound results reviewed with the patient today; as noted above. Patient reports bladder pressure she had previously been experiencing has since subsided. She currently denies any bothersome urinary issues or concerns. She reports be happy with current voiding parameters. Continue with increased hydration, vitamin B6, and Estrace cream as prescribed. Will continue with surveillance monitoring. Will obtain renal ultrasound in 6 months. Follow-up in 6 months with imaging to be completed prior; or sooner with any issues, concerns, and or questions. Orders: Orders AMB Urinalysis Automated Today Z13.9 - Encounter for screening, unspecified Urine Cytology Today R31.29 - Other microscopic hematuria US renal BI 6 Months N20.0 - Calculus of kidney Patient Instructions: The patient had an opportunity to ask questions regarding the treatment plan. All questions were answered. Physical exam, labs, and imaging were discussed and reviewed in detail. As well as risks, benefits, and discussion of treatment choices. No major barriers to understanding were identified. The patient expressed understanding and agreement with the above treatment plan. The patient was made aware they should contact our office by phone for worsening of their current condition, the appearance of new symptoms, or with any questions or concerns. Compliance is encouraged with any medications and follow up testing that is ordered. It is a privilege to be allowed the opportunity to participate in? your urological care.? Again, if you have any questions or concerns If you have any questions or concerns please do not hesitate to contact me. The office is [phone]. This note is constructed using voice recognition software. While every effort has been made to ensure accuracy scoop machine operator errors may have been included. Yours sincerely, MOON Da Silva-SHAWNA Coding Level of Care Code Est Pt Level 3 (70258) Complex EM visit Add On G2211 Diagnoses Microscopic hematuria R31.29 Renal cyst N28.1 Renal calculi N20.0 Sensation of pressure in bladder area R39.89 CPT Codes Post Residual Void - PVR CPT Code: 42636-Jive Void Residual by ultrasound ([id number])
--- OUTSIDE RECORDS SUMMARY | 2024-10-10 14:53 | XMS_ITS | Clinical Summary ---
Author Organization [facility] Address [address] [place] [address] Phone Care Team Providers Care Senior Hris Analyst Name Role Phone Sherley Best MD Primary [...] Visit [facility] [address] [place] [phone] Tesfaye Stevenson MD [address] [facility] [address] [place] [address] Health Maintenance Due Date Last Done Comments Breast Cancer Screening 1965 Hepatitis B Vaccine (1 of 3 - 19+ 3-dose series) 10/31 Pneumococcal Vaccine: 50+ Years (1 of 2 - PCV) 984 Colorectal Cancer Screening: Annual FOBT 2013 Colorectal Cancer Screening: Colonoscopy 2013 Colorectal Cancer Screening: Sigmoidoscopy 2013 Influenza Vaccine (#1) 2024 Insurance [facility] ([id number]) [facility] ([id number]) Care Teams Senior Hris Analyst Relationship Specialty Start Date End Date Sherley Best MD [address] [facility] [address] [place] PCP - General 03/17/20
== END 2024-10-10 15:08 | disposition home or self-care (01) ==
LOC: HO.HUSH 14:26
PROVIDERS: PCP Internal Medicine; Visit Provider Nurse Practitioner Family
DX: R31.29 Other microscopic hematuria (principal); N28.1 Cyst of kidney, acquired; N20.0 Calculus of kidney; R39.89 Other symptoms and signs involving the genitourinary system
CPT/HCPCS: 99213; G2211

== ENCOUNTER 2024-10-10 14:25 | Outpatient (REF) | payer OTHER, SELFPAY | END 2024-10-10 14:26 | disposition home or self-care (01) | LOC: HO.LAB 14:25 | PROVIDERS: PCP Internal Medicine; Visit Provider Nurse Practitioner Family | DX: N20.0 Calculus of kidney (principal); N28.1 Cyst of kidney, acquired; R31.29 Other microscopic hematuria; R39.89 Other symptoms and signs involving the genitourinary system; Z13.89 Encounter for screening for other disorder; Z79.899 Other long term (current) drug therapy | CPT/HCPCS: 51798; 81003; 88112; 99212 ==

== ENCOUNTER 2024-11-19 09:19 | Outpatient (REF) | payer OTHER, SELFPAY ==
[2024-11-19 10:41] LABS: MANUAL DIFF FLAG NO
[2024-11-19 10:45] LABS: Hematocrit 38.2 % (37.0-47.0); Hemoglobin 12.9 g/dl (12.0-16.0); Imm Gran Abs Auto 0.02 X10*3/uL (0.00-0.03); Imm Gran Pct Auto 0.3 % (0.0-0.4); Lymphocytes Absolute Auto 3.0 X10*3/uL (1.2-4.9); Mean Corpuscular HGB Conc 33.8 g/dl (31.0-35.0); Mean Corpuscular Hemoglobin 31.0 pg (27.0-33.0); Mean Corpuscular Volume 91.8 fL (80.0-98.0); NRBC Abs Auto 0.000 X10*3/uL (0.0-0.012); NRBC Pct Auto 0.0 /100WBC (0.0-0.2); Platelet Count 254 X10*3/uL (160-400); Red Blood Count 4.16 X10*6/uL (4.20-5.50); White Blood Count 7.6 X10*3/uL (4.8-10.8)
--- OUTSIDE RECORDS SUMMARY | 2024-11-19 11:00 | XMS_ITS | Clinical Summary ---
Author Organization [facility] Address [address] [place] [address] Phone Care Team Providers Care Recruitment Officer Name Role Phone Sherley Best MD Primary Care Provider [phone] Allergies Active Allergy Reactions Criticality Noted Date [...] Visit [facility] [address] [place] [address] Tesfaye Stevenson MD [address] [facility] [address] [place] [address] Health Maintenance Due Date Last Done Comments Breast Cancer Screening 1965 Pneumococcal Vaccine: 50+ Ye ars (1 of 2 - PCV) 11/01/1983 Colorectal Cancer Screening: Annual FOBT 2013 Colorectal Cancer Screening: Colonoscopy 2013 Colorectal Cancer Screening: Sigmoidoscopy 2013 Influenza Vaccine (#1) 2024 Hepatitis B Vaccine Aged Out No longe r eligible based on patient's age to complete this topic Insurance [facility] ([id number]) [facility] ([id number]) Care Teams Recruitment Officer Relationship Specialty Start Date End Date Sherley Best MD [facility] [address] [facility] [place] P[facility] - General 03/17/20
[2024-11-19 11:08] LABS: Alanine Aminotransferase 22 U/L (0-31); Albumin Level 4.6 g/dL (3.5-5.0); Alkaline Phosphatase 99 U/L (39-117); Anion Gap 12 (12-20); Aspartate Amino Transferase 26 U/L (5-31); Blood Urea Nitrogen 16 mg/dL (9-16); Calcium 9.0 mg/dL (8.4-10.2); Carbon Dioxide 31 mmol/L (22-29); Chloride 102 mmol/L (96-108); Cholesterol 202 mg/dL (<200); Estimated Glomerular Filt Rate > 60; HDL Cholesterol 44 mg/dL (>40); Potassium 3.2 mmol/L (3.3-5.1); Sodium 142 mmol/L (135-145); Total Protein 7.8 g/dL (6.5-8.0); Triglycerides 140 mg/dL (<150)
[2024-11-19 11:23] LABS: Thyroid Stimulating Hormone 2.08 uIU/mL (0.32-4.0)
== END 2024-11-19 09:20 | disposition home or self-care (01) ==
LOC: HO.10HDL 09:19
PROVIDERS: Visit Provider Internal Medicine
DX: E78.00 Pure hypercholesterolemia, unspecified (principal); E87.6 Hypokalemia; I10 Essential (primary) hypertension; K08.89 Other specified disorders of teeth and supporting structures; Q61.8 Other cystic kidney diseases
CPT/HCPCS: 36415; 80053; 80061; 84443; 85025